=== PATIENT | female | born 1950 | race Caucasian/White ===

== ENCOUNTER → 2017-01-16 | Outpatient (CLI) | payer BC ==
[~2017-01-16] MED LIST: ALBU1AER9 INH; ATOR-26 PO; HYDR-389 PO; INSU100I17 SC; INSUINJ12 SC; LEVO100T PO; METF-382 PO
[2017-01-16 10:01] LABS: ESTIMATED AVERAGE GLUCOSE 177 mg/dl; HA1C FLAG Normal (Normal)
== END | disposition home or self-care (01) ==
LOC: C.LAB1850 08:16
PROVIDERS: ATTEND Nurse Practitioner Family
DX: E11.65 Type 2 diabetes mellitus with hyperglycemia (principal); E03.9 Hypothyroidism, unspecified

== ENCOUNTER → 2017-01-18 | Outpatient (CLI) | payer BC ==
[2017-01-18 13:09] LABS: BASO % 0.4 %; BASO ABS # 0.03 K/uL (0-0.2); COMPLETE YES; EOS % 1.7 %; HEMATOCRIT 44.2 % (37-47); IG% 0.3 %; LYMPH % 34.9 %; LYMPH ABS # 2.74 K/uL (1.2-3.4); MEAN CELL VOLUME 85.8 fL (80-100); MEAN CORPUSCULAR HEMOGLOBIN 28.5 pg (25-34); MEAN CORPUSCULAR HGB CONC 33.3 g/dl (32-36); MONO % 7.1 %; NEUT % 55.6 %; PLATELET COUNT 219 K/uL (130-400); RED BLOOD COUNT 5.15 M/uL (4.2-5.4); WHITE BLOOD COUNT 7.86 K/uL (4.8-10.8)
[2017-01-18 13:44] LABS: ALT/SGPT 25 U/L (12-78); BLOOD UREA NITROGEN 11 mg/dl (7-18); BUN/CREATININE RATIO 13.6 (10-20); C-REACTIVE PROTEIN < 0.29 mg/dl (0-0.29); CALCIUM 9.5 mg/dl (8.5-10.1); CARBON DIOXIDE 27 mmol/L (21-32); CHLORIDE 106 mmol/L (98-107); CREATININE 0.83 mg/dl (0.60-1.20); GLUCOSE 212 mg/dl (70-99); POTASSIUM 3.9 mmol/L (3.5-5.1); SODIUM 139 mmol/L (136-145)
[2017-01-18 13:47] LABS: ALB/GLOB RATIO 0.9 (0.9-2); ALKALINE PHOSPHATASE 121 U/L (45-117); AST/SGOT 12 U/L (15-37)
== END | disposition home or self-care (01) ==
LOC: C.LAB1850 12:16
PROVIDERS: ATTEND Orthopaedic Surgery
DX: M25.562 Pain in left knee (principal); Z96.652 Presence of left artificial knee joint; G89.29 Other chronic pain

== ENCOUNTER → 2017-07-05 | Outpatient (CLI) | payer BC ==
[~2017-07-05] MED LIST changes: +ASPI-320 PO; +CETI10TA84 PO; +DTRSR/2 PO; +ESCI1TAB10 PO; +ESCI1TAB9 PO; +FLUT0.15 NAE; +INSU100I2 SC; +INSU100I23 SC; +LATA0.5S OP; +MISC-573; +MISC-796; +MONT1TAB3 PO; +OXYC-57 PO; +OXYC-90 PO; +VNTHFA/IN INH; +[UNRECOGNIZED DRUG - CODE]
[2017-07-06 08:00] LABS: HEMOGLOBIN A1C 7.7 % (4.5-5.6)
== END | disposition home or self-care (01) ==
LOC: C.LABBC 11:01
PROVIDERS: ATTEND Nurse Practitioner Family
DX: E11.65 Type 2 diabetes mellitus with hyperglycemia (principal)

== ENCOUNTER → 2017-08-15 | Outpatient (CLI) | payer BC ==
[~2017-08-15] MED LIST changes: -ASPI-320 PO; -CETI10TA84 PO; -DTRSR/2 PO; -ESCI1TAB10 PO; -ESCI1TAB9 PO; -FLUT0.15 NAE; -INSU100I2 SC; -INSU100I23 SC; -LATA0.5S OP; -MISC-573; -MISC-796; -MONT1TAB3 PO; -OXYC-57 PO; -OXYC-90 PO; -VNTHFA/IN INH; -[UNRECOGNIZED DRUG - CODE]
--- NOTE | 2017-08-15 14:30 | MAMMOGRAPHY REPORT ---
BILATERAL DIGITAL SCREENING MAMMOGRAM TOMOSYNTHESIS WITH CAD: 08/15/2017 CLINICAL HISTORY: Routine screening. Patient has no complaints. TECHNIQUE: Breast tomosynthesis in addition to standard 2D mammography was performed. Current study was also evaluated with a Computer Aided Detection (CAD) system. COMPARISON: Comparison is made to exams dated: 02/11/2013 mammogram, 02/05/2013 mammogram, and 01/31/2012 mammogram - [facility]. BREAST COMPOSITION: The tissue of both breasts is almost entirely fatty. FINDINGS: No suspicious masses, calcifications, or areas of architectural distortion are noted in ei ther breast. There has been no significant interval change compared to prior exams. Scattered bilater al benign-appearing calcifications are again noted. IMPRESSION: ACR BI-RADS CATEGORY 2: BENIGN There is no mammographic evidence of malignancy. A 1 year screening mammogram is recommended. The pa tient will receive written notification of the results. Approximately 10% of breast cancers are not detected with mammography. A negative mammographic report should not delay biopsy if a clinically suggestive mass is present. Louisa Brennan M.D. ah/:08/15/2017 08:04:30 [employer] Submersible: Milagros VALENCIA(Darrian)(M), [facility] letter sent: Normal 1/2 BI-RADS Code: ACR BI-RADS Category 2: Benign
== END | disposition home or self-care (01) ==
LOC: C.MAMM 07:49
PROVIDERS: ATTEND Family Medicine
DX: Z12.31 Encounter for screening mammogram for malignant neoplasm of breast (principal)

== ENCOUNTER 2017-10-14 15:20 | Inpatient (IN) | payer OTHER, BC ==
[~2017-10-14] VITALS: Ht 165.1 cm; Wt 95.0 kg
[2017-10-14] MEDS ORDERED: MoRPHine SULFATE 4 MG/ML 1 ML CARP\\VIAL IV STA (15:31)
[2017-10-14] MEDS ORDERED: ONDANSETRON INJ 2 MG/ML 2 ML VIAL IV STA (15:31)
[2017-10-14 16:06] LABS: BASO % 0.2 %; BASO ABS # 0.02 K/uL (0-0.2); EOS % 1.8 %; EOS ABS # 0.19 K/uL (0-0.5); HEMATOCRIT 42.3 % (37-47); HEMOGLOBIN 14.7 g/dL (12.0-16.0); IG# 0.06 K/uL (0.00-0.02); LYMPH ABS # 3.25 K/uL (1.2-3.4); MEAN CELL VOLUME 84.6 fL (80-100); MEAN CORPUSCULAR HEMOGLOBIN 29.4 pg (25-34); MEAN CORPUSCULAR HGB CONC 34.8 g/dl (32-36); MEAN PLATELET VOLUME 11.6 fL (7.4-10.4); MONO % 7.2 %; MONO ABS # 0.76 K/uL (0.11-0.59); NEUT % 59.2 %; NEUT ABS # 6.22 K/uL (1.4-6.5); PLATELET COUNT 214 K/uL (130-400); RED CELL DISTRIBUTION WIDTH CV 13.8 % (11.5-14.5); RED CELL DISTRIBUTION WIDTH SD 42.6 fL (36.4-46.3)
--- NOTE | 2017-10-14 16:29 | DIAGNOSTIC IMAGING REPORT ---
L HIP UNILATERAL 2 VIEWS CLINICAL HISTORY: 66 years-old Female presenting with L hip pain s/p fall. TECHNIQUE: Frontal and frog-leg lateral views of the left hip were obtained. COMPARISON: None. FINDINGS: Impacted transcervical fracture of the left femoral neck suspected. No significant angulation. The left femoral head remains congruent in the acetabulum. Visualized portion of the bony pelvis intact. IMPRESSION: Findings highly suspicious for impacted transcervical left femoral neck fracture. The report will be called/faxed according to standard departmental protocol. Electronically signed by: Jose Guadalupe Watson M.D. 10/14/2017 4:28 PM Dictated Date/Time: 10/14/2017 4:26 PM
--- NOTE | 2017-10-14 16:31 | DIAGNOSTIC IMAGING REPORT ---
L KNEE 1 OR 2 VIEWS ROUTINE CLINICAL HISTORY: 66 years-old Female presenting with L knee injury from fall. TECHNIQUE: Frontal and lateral views of the left knee were obtained. COMPARISON: 08/18/2009. FINDINGS: Postsurgical changes of total left knee arthroplasty with patellar resurfacing. Knee joint effusion noted. Unchanged 3-4 mm of radiolucency at the distal aspect of the tibial stem component. No periprosthetic fracture. Prominent enthesophyte at the insertion of the quadriceps tendon. IMPRESSION: 1. Knee joint effusion. 2. Total left knee arthroplasty without evidence of hardware complication. 3. No acute osseous injury. Electronically signed by: Jose Guadalupe Watson M.D. 10/14/2017 4:30 PM Dictated Date/Time: 10/14/2017 4:28 PM
[2017-10-14 16:32] LABS: CALCIUM 9.2 mg/dl (8.5-10.1); CREATININE 0.92 mg/dl (0.60-1.20); POTASSIUM 3.9 mmol/L (3.5-5.1)
--- NOTE | 2017-10-14 16:50 | DIAGNOSTIC IMAGING REPORT ---
SINGLE VIEW CHEST CLINICAL HISTORY: Hip fracture. Preoperative examination. FINDINGS: An AP, portable, upright chest radiograph is compared to study dated 03/25/2013 and correlated with chest CT dated 07/06/2014. The examination is severely degraded by portable technique, apical lordotic positioning, and patient rotation. The heart is top normal for projection. The pulmonary vasculature is noncongested. Chronic interstitial thickening is similar to previous. No airspace consolidation, large pleural effusion, or pneumothorax is seen. The skeletal structures are osteopenic. The bony thorax is grossly intact. Arthritic change is seen in the shoulders. IMPRESSION: No acute cardiopulmonary abnormality. Electronically signed by: Francisco Schmid M.D. 10/14/2017 4:48 PM Dictated Date/Time: 10/14/2017 4:47 PM
[2017-10-14] MEDS ORDERED: ESCI1TAB10 PO (16:58)
[2017-10-14] MEDS ORDERED: INSU100I2 SC (16:58)
[2017-10-14] MEDS ORDERED: VNTHFA/IN INH (16:58)
[2017-10-14] MEDS ORDERED: INSU100I23 SC (16:58)
[2017-10-14] MEDS ORDERED: CETI10TA84 PO (16:58)
--- NOTE | 2017-10-14 17:15 | EMERGENCY ROOM VISIT NOTE ---
ED Visit Note First contact with patient: 15:26 The patient was seen and examined with Cam Tobias PA-C. I agree with the history, physical and findings. Please see the note for disposition and details.
[2017-10-14] MEDS ORDERED: SOD PHOSPHATE/SOD BIPHOSPHATE ENEMA 132 ML BTL PR PRN (18:45)
[2017-10-14] MEDS ORDERED: MAGNESIUM HYDROXIDE SUSP 30 ML UDC PO PRN (18:45)
[2017-10-14] MEDS ORDERED: MoRPHine SULFATE 4 MG/ML 1 ML CARP\\VIAL IV PRN (18:45)
[2017-10-14] MEDS ORDERED: GLUCOSE 10 TABS/TUBE PO PRN (18:45)
[2017-10-14] MEDS ORDERED: POLYETHYLENE (MIRALAX) 17 GM PACK PO PRN (18:45)
[2017-10-14] MEDS ORDERED: GLUCAGON FOR INJ 1 MG VIAL SQ PRN (18:45)
[2017-10-14] MEDS ORDERED: DEXTROSE 50% 50 ML SYR IV PRN (18:45)
[2017-10-14] MEDS ORDERED: GLUCOSE 40% GEL 15 GM TUBE PO PRN (18:45)
[2017-10-14] MEDS ORDERED: BISACODYL 10 MG SUPP PR PRN (18:45)
[2017-10-14] MEDS ORDERED: ONDANSETRON INJ 2 MG/ML 2 ML VIAL IV PRN (18:45)
[2017-10-14] MEDS ORDERED: NALOXONE HCL 0.4 MG/1 ML VIAL/CARP IV PRN (18:45)
[2017-10-14] MEDS ORDERED: LATA0.5S OP (18:54)
[2017-10-14] MEDS ORDERED: OXYC1TAB3 PO (18:54)
[2017-10-14] MEDS ORDERED: DTRSR/2 PO (18:54)
[2017-10-14] MEDS ORDERED: FLUT0.15 NAE (18:54)
[2017-10-14] MEDS ORDERED: MONT1TAB3 PO (18:54)
[2017-10-14] MEDS ORDERED: ESCI1TAB9 PO (18:54)
[2017-10-14 19:32] LABS: PTT PATIENT 24.5 SECONDS (21.0-31.0)
--- NOTE | 2017-10-14 20:02 | History and Physical ---
History & Physical Date & Time of Service: Oct 14, 2017 at 18:56 Chief Complaint: Fall, Leg Pain Primary Care Physician: Cody Lang M.D.(RAYSHAWN) History of Present Illness Source: patient, clinic records, hospital records Pt is 66 y/o F with PMH asthma, DM II, hypothyroidism, depression, tobacco use presented to ER with complaint of left knee and left hip pain after fall. Patient states was walking and she did not see stairs and tripped and fell. Denies hitting head or LOC. Complains of left knee pain and edema and ecchymosis and left hip pain with range of motion or attempted weightbearing. States some mild tingling sensation left leg. Denies any injury to upper extremities or right lower extremity. Patient reports unable to bear weight on left leg secondary to pain. Patient reports history of left knee scope on . History of asthma uses albuterol inhaler 2-3 times a week. Reports chronic postnasal drip, uses Flonase. Denies history CAD AL in the past. History echo 2016: EF: 60-64%. Patient reports history stress test in 2010 which she reports is normal. Denies history hip injury or surgery in the past. History of bilateral knee replacement past. Denies fever/chills, diaphoresis, N/V/D/C, DIAZ, dizziness, syncope, vision changes, neck pain, back pain, CP, SOB, orthopnea , palpitations, cough, sore throat, choking, otalgia, abdominal pain, rashes, urinary symptoms. Past Medical/Surgical History Medical Problems: (1) Asthma Status: Chronic (2) Depression Status: Chronic (3) DM type 2 (diabetes mellitus, type 2) Status: Chronic (4) Dyslipidemia Status: Chronic (5) Hypothyroidism Status: Chronic (6) Tobacco abuse Status: Chronic Surgical Problems: (1) History of bilateral knee replacement Status: Resolved (2) Hx of arthroscopy of left knee Permanent Comment: 09/26/2017 - diagnostic arthroscopy - Dr Packer Status: Resolved (3) Hx of hysterectomy Status: Resolved Family History Diabetes mellitus Hypertension Social History Smoking Status: Current Every Day Smoker (1ppd x 45 years) Smokeless Tobacco Use: No Alcohol Use: none Drug Use: none Marital Status: single Housing status: lives with significant other Immunizations History of Influenza Vaccine: No Influenza Vaccine Date: Apr 25, 2005 History of Tetanus Vaccine?: Yes History of Pneumococcal: No History of Hepatitis B Vaccine: No Allergies Coded Allergies: Iodinated Diagnostic Agents (Verified Allergy, Unknown, ., 10/14/17) Moxifloxacin (Unverified Allergy, Unknown, ., 09/07/14) Oxycodone (Verified Adverse Reaction, Intermediate, n/v, 09/07/14) Codeine (Verified Adverse Reaction, Mild, 09/07/14) Propoxyphene (Verified Adverse Reaction, Unknown, 08/24/14) Home Medications Scheduled Atorvastatin (Lipitor), 80 MG PO QAM Cetirizine (Zyrtec), 10 MG PO DAILY Escitalopram Oxalate (Lexapro), 1 TAB PO DAILY Fluticasone Propionate (Nasal) (Flonase Allergy Relief), 2 SPRAYS DAVID DAILY Insulin Glargine (Basaglar Kwikpen), 31 UNITS SC HS Insulin Lispro (Human) (Humalog Kwikpen), 1 DOSE SC DIRECTED Latanoprost (Xalatan 0.005% Oph Melinda), 1 DROPS OP HS Levothyroxine Sodium (Synthroid), 100 MCG PO DAILY Metformin Ext Rel (Glucophage Ext Rel), 1,000 MG PO BID Tolterodine Tartrate (Detrol LA), 1 CAP PO BID Scheduled PRN Albuterol Hfa (Ventolin Hfa), 2 PUFFS INH Q4H PRN for Shortness of Breath Oxycodone Ir (Roxicodone Ir), 1-2 TAB PO Q6 PRN for Pain Miscellaneous Medications Montelukast Sodium (Singulair), 10 MG PO Review of Systems See HPI for pertinent positives & negatives. All other systems reviewed and were otherwise negative Physical Exam Vital Signs Date Time Temp Pulse Resp B/P (MAP) Pulse Ox O2 Delivery O2 Flow Rate FiO2 10/14/17 18:01 83 16 130/64 92 Room Air 10/14/17 16:43 84 16 152/77 94 Room Air 10/14/17 15:29 36.6 90 20 157/87 98 Room Air General Appearance: no apparent distress, + obese Head: normocephalic, atraumatic Eyes: normal inspection, sclerae normal ENT: hearing grossly normal, pharynx normal, + pertinent finding (membranes moist) Neck: supple, no JVD, trachea midline Respiratory/Chest: no respiratory distress, no accessory muscle use, + wheezing (Mild scattered expiratory wheezing) Cardiovascular: regular rate, rhythm, no murmur Abdomen/GI: normal bowel sounds, non tender, soft Extremities/Musculoskelatal: + pertinent finding (Left knee: + edema ecchymosis , mild tenderness to palpation, limited range of motion secondary to tenderness. Left hip no tenderness to palpation, positive tenderness with any active internal or external rotation or flexion. Distal pulses bilaterally intact, sensation to light touch intact bilaterally, brisk cap refill bilaterally) Neurologic/Psych: alert, normal mood/affect, oriented x 3 Skin: normal color, warm/dry Diagnostics Laboratory Results Results Past 24 Hours Test 10/14/17 15:48 10/14/17 17:03 10/14/17 18:44 Range/Units White Blood Count 10.50 4.8-10.8 K/uL Red Blood Count 5.00 4.2-5.4 M/uL Hemoglobin 14.7 12.0-16.0 g/dL Hematocrit 42.3 37-47 % Mean Corpuscular Volume 84.6 80-100 fL Mean Corpuscular Hemoglobin 29.4 25-34 pg Mean Corpuscular Hemoglobin Concent 34.8 32-36 g/dl Platelet Count 214 130-400 K/uL Mean Platelet Volume 11.6 7.4-10.4 fL Neutrophils (%) (Auto) 59.2 % Lymphocytes (%) (Auto) 31.0 % Monocytes (%) (Auto) 7.2 % Eosinophils (%) (Auto) 1.8 % Basophils (%) (Auto) 0.2 % Neutrophils # (Auto) 6.22 1.4-6.5 K/uL Lymphocytes # (Auto) 3.25 1.2-3.4 K/uL Monocytes # (Auto) 0.76 0.11-0.59 K/uL Eosinophils # (Auto) 0.19 0-0.5 K/uL Basophils # (Auto) 0.02 0-0.2 K/uL RDW Standard Deviation 42.6 36.4-46.3 fL RDW Coefficient of Variation 13.8 11.5-14.5 % Immature Granulocyte % (Auto) 0.6 % Immature Granulocyte # (Auto) 0.06 0.00-0.02 K/uL Sodium Level 139 136-145 mmol/L Potassium Level 3.9 3.5-5.1 mmol/L Chloride Level 106 98-107 mmol/L Carbon Dioxide Level 26 21-32 mmol/L Anion Gap 7.0 3-11 mmol/L Blood Urea Nitrogen 13 7-18 mg/dl Creatinine 0.92 0.60-1.20 mg/dl Est Creatinine Clear Calc Drug Dose 69.4 ml/min Estimated GFR () 74.7 Estimated GFR (Non- 64.4 BUN/Creatinine Ratio 14.3 10-20 Random Glucose 89 70-99 mg/dl Calcium Level 9.2 8.5-10.1 mg/dl Diagnostic Radiology CXR: IMPRESSION: No acute cardiopulmonary abnormality. LEFT HIP X-RAY: IMPRESSION: Findings highly suspicious for impacted transcervical left femoral neck fracture. LEFT KNEE X-RAY: IMPRESSION: 1. Knee joint effusion. 2. Total left knee arthroplasty without evidence of hardware complication. 3. No acute osseous injury. EKG EKG: NSR, rate 82, no ST elevations noted. Impression Assessment and Plan PROBABLE LEFT FEMUR FRACTURE Patient tripped and fell today, complaining of left hip and left knee pain. Left hip x-ray: Findings highly suspicious for impacted transcervical left femoral neck fracture. Left knee x-ray: No acute fracture. In ER given Zofran and morphine with moderate pain. EKG without acute changes noted. in ER reported consult. Patient moderate surgical risk secondary to age, smoking, DM -Admit MedSurg -Hip fracture order set -N.p.o. after midnight -Orthopedic consult -Patient may need additional imaging study to hip, will await ortho recommendations -Morphine as needed pain -Will reassess patient in a.m., if wheezing subsided and O2 sats stable then no contraindication for surgery ASTHMA Patient with some mild expiratory wheezing noted on exam. 94-98% on room air. Respirations 16 and nonlabored. Patient afebrile. no leukocytosis -Xopenex/Atrovent nebs -Continue Singulair -Will reassess patient in a.m., if wheezing subsided and O2 sats stable then no contraindication for surgery DM II -H A1c in a.m. glucose 89 in ER today -Hold metformin -Hold Lantus tonight with patient being n.p.o. with plans to resume when patient starts eating -NovoLog sliding scale per protocol HYPOTHYROIDISM TSH added -Continue levothyroxine DEPRESSION -Continue Lexapro DYSLIPIDEMIA -Continue statin TOBACCO USE -Smoking cessation discussed DVT Prophylaxis -SCDs Disposition admit med surg Full code Follows with Dr Lang for routine care Pt was seen with Dr Tavarez. See addendum ATTENDING ADDENDUM care coordinated with WHIT Harrison please refer to her notes for full details, I agree with her notes patient seen and examined, records reviewed by myself as well on exam, patient seen resting in bed has severe left hip pain with minimal movement no shortness of breath, cough no other symptoms VS noted and reviewed oriented x3, not in distress, speaks in sentences with no effort nor accessory muscle use normal rate, regular rhythm, no murmurs (+) mild scattered wheezes non distended, soft, nontender no bipedal edema, erythema, warmth no neuro deficits Hg 14 Crea 0.92 ASSESSMENT/PLAN> IMPACTED TRANSCERVICAL FEMORAL NECK FRACTURE may need Surgical Intervention patient low-moderate risk for cardiopulmonary complications for Orthopedis surgery given age, comorbidities management of asthma noted below ASTHMA CHRONIC SMOKER (+) faint wheezes on exam patient reports she has chronic wheezing and uses Albuterol Inhaler PRN will start Xopenex nebs q6h to optimize respiratory status will re-evaluate in AM prior to surgery other diagnoses and plan of care as per WHIT Tavarez MD Resuscitation Status Full Code VTE Prophylaxis Will order VTE Prophylaxis: Yes Additional Copies To Amol Tavarez MD
[2017-10-14 20:03] VITALS: BP 145/79; PULSE 90; TEMP 36.8; O2SAT 90; BMI 34.9
--- NOTE | 2017-10-14 20:39 | EMERGENCY ROOM VISIT NOTE ---
History First contact with patient: 15:26 Chief Complaint: HIP PAIN Stated Complaint: FRACTURE OF FEMORAL NEXK, LEFT, CLOSED History of Present Illness The patient is a 66 year old female who presents to the Emergency Room with complaints of left hip and knee pain. The patient reports that she was on a bus tour, and when she got out of the bus, was walking down the sidewalk. She did not know that the sidewalk had a step in it, and the patient missed the step. She stumbled and landed on her left knee. She denies any significant knee pain, but does report left hip pain. Weightbearing significantly worsens her pain to a 9 out of 10. The patient denies any head injury, neck pain or back pain. She denies any other orthopedic injuries from her fall. The patient denies any blood thinner use. She has had bilateral knee replacements by Dr. Leiva at [facility]. Review of Systems HEENT: Denies dizziness, visual problems, hearing loss, tinnitus. Denies difficulty swallowing or oral lesions. PULMONARY: Denies cough, shortness of breath, sputum production or hemoptysis. CARDIOVASCULAR: Denies chest pain, palpitations, dyspnea on exertion, orthopnea or peripheral edema. GASTROINTESTINAL: Denies diarrhea, constipation, nausea, vomiting, or abdominal pain. GENITOURINARY: Denies dysuria, frequency, urgency or nocturia. NEUROLOGIC: Denies history of epilepsy, CVA, TIA or chronic headaches. MUSCULOSKELETAL: Denies history of joint tenderness/swelling. Otherwise see HPI. SKIN: Denies rashes or lesions. PSYCHIATRIC: History of depression. ENDOCRINE: History of diabetes. Denies thyroid disorders. Past Medical/Surgical History Medical Problems: (1) Asthma (2) Depression (3) DM type 2 (diabetes mellitus, type 2) (4) Dyslipidemia (5) Fracture of femoral neck, left, closed (6) Hypothyroidism (7) Tobacco abuse Surgical Problems: (1) History of bilateral knee replacement (2) Hx of arthroscopy of left knee (3) Hx of hysterectomy Family History Diabetes mellitus Hypertension Social History Smoking Status: Current Every Day Smoker Smokeless Tobacco Use: No Drug Use: none Marital Status: single Housing Status: lives with significant other Occupation Status: employed Current/Historical Medications Scheduled Atorvastatin (Lipitor), 80 MG PO QAM Cetirizine (Zyrtec), 10 MG PO DAILY Escitalopram Oxalate (Lexapro), 1 TAB PO DAILY Fluticasone Propionate (Nasal) (Flonase Allergy Relief), 2 SPRAYS DAVID DAILY Insulin Glargine (Basaglar Kwikpen), 31 UNITS SC HS Insulin Lispro (Human) (Humalog Kwikpen), 1 DOSE SC DIRECTED Latanoprost (Xalatan 0.005% Oph Melinda), 1 DROPS OP HS Levothyroxine Sodium (Synthroid), 100 MCG PO DAILY Metformin Ext Rel (Glucophage Ext Rel), 1,000 MG PO BID Tolterodine Tartrate (Detrol LA), 1 CAP PO BID Scheduled PRN Albuterol Hfa (Ventolin Hfa), 2 PUFFS INH Q4H PRN for Shortness of Breath Oxycodone Ir (Roxicodone Ir), 1-2 TAB PO Q6 PRN for Pain Miscellaneous Medications Montelukast Sodium (Singulair), 10 MG PO Physical Exam Vital Signs Date Time Temp Pulse Resp B/P (MAP) Pulse Ox O2 Delivery O2 Flow Rate FiO2 10/14/17 18:01 83 16 130/64 92 Room Air 10/14/17 16:43 84 16 152/77 94 Room Air 10/14/17 15:29 36.6 90 20 157/87 98 Room Air Physical Exam CONSTITUTIONAL: Obese female, alert and oriented X 3 with positive affect. The patient is partially laying on her right side, and appears in moderate discomfort from pain. HEENT: Normocephalic, atraumatic. Pupils equal, round and reactive. No subconjunctival hemorrhage, epistaxis, raccoon's eyes or padilla sign. NECK: Full active range of motion without discomfort. RESPIRATORY: Clear to auscultation bilaterally with no wheezing, crackles, rhonchi or stridor. CARDIOVASCULAR: Regular rate and rhythm with no murmurs, rubs or gallops. GASTROINTESTINAL: Bowel sounds present in all quadrants. Soft and nontender to palpation. MUSCULOSKELETAL: Examination does not show any obvious ecchymosis or open wounds on the knee. The patient has generalized tenderness to palpation about the entire left hip. Patient has no tenderness to palpation through the central lumbar spine. Distal pulses are intact. INTEGUMENTARY: No rash or other significant dermatologic conditions noted. NEUROLOGIC: Left lower extremity is sensory intact. Medical Decision & Procedures ER Provider Diagnostic Interpretation: My interpretation of left hip x-ray shows a femoral neck fracture without dislocation. Radiologist report is as follows: L HIP UNILATERAL 2 VIEWS CLINICAL HISTORY: 66 years-old Female presenting with L hip pain s/p fall. TECHNIQUE: Frontal and frog-leg lateral views of the left hip were obtained. COMPARISON: None. FINDINGS: Impacted transcervical fracture of the left femoral neck suspected. No significant angulation. The left femoral head remains congruent in the acetabulum. Visualized portion of the bony pelvis intact. IMPRESSION: Findings highly suspicious for impacted transcervical left femoral neck fracture. My interpretation of left knee x-rays does not show any periprosthetic fractures. Joint effusion is noted. Radiologist report is as follows: L KNEE 1 OR 2 VIEWS ROUTINE CLINICAL HISTORY: 66 years-old Female presenting with L knee injury from fall. TECHNIQUE: Frontal and lateral views of the left knee were obtained. COMPARISON: 08/18/2009. FINDINGS: Postsurgical changes of total left knee arthroplasty with patellar resurfacing. Knee joint effusion noted. Unchanged 3-4 mm of radiolucency at the distal aspect of the tibial stem component. No periprosthetic fracture. Prominent enthesophyte at the insertion of the quadriceps tendon. IMPRESSION: 1. Knee joint effusion. 2. Total left knee arthroplasty without evidence of hardware complication. 3. No acute osseous injury. My interpretation of an ECG shows a normal sinus rhythm of [address] elevation or other abnormalities. My interpretation of a portable chest x-ray does not show any consolidations, pneumothorax or cardiac prominence. Radiologist reports are as follows: SINGLE VIEW CHEST CLINICAL HISTORY: Hip fracture. Preoperative examination. FINDINGS: An AP, portable, upright chest radiograph is compared to study dated 03/25/2013 and correlated with chest CT dated 07/06/2014. The examination is severely degraded by portable technique, apical lordotic positioning, and patient rotation. The heart is top normal for projection. The pulmonary vasculature is noncongested. Chronic interstitial thickening is similar to previous. No airspace consolidation, large pleural effusion, or pneumothorax is seen. The skeletal structures are osteopenic. The bony thorax is grossly intact. Arthritic change is seen in the shoulders. IMPRESSION: No acute cardiopulmonary abnormality. Laboratory Results 10/14/17 15:48 Red Blood Count 5.00, Mean Corpuscular Volume 84.6, Mean Corpuscular Hemoglobin 29.4, Mean Corpuscular Hemoglobin Concent 34.8, Mean Platelet Volume 11.6, Neutrophils (%) (Auto) 59.2, Lymphocytes (%) (Auto) 31.0, Monocytes (%) (Auto) 7.2, Eosinophils (%) (Auto) 1.8, Basophils (%) (Auto) 0.2, Neutrophils # (Auto) 6.22, Lymphocytes # (Auto) 3.25, Monocytes # (Auto) 0.76, Eosinophils # (Auto) 0.19, Basophils # (Auto) 0.02 10/14/17 15:48 Test 10/14/17 15:48 10/14/17 16:48 White Blood Count 10.50 K/uL (4.8-10.8) Red Blood Count 5.00 M/uL (4.2-5.4) Hemoglobin 14.7 g/dL (12.0-16.0) Hematocrit 42.3 % (37-47) Mean Corpuscular Volume 84.6 fL (80-100) Mean Corpuscular Hemoglobin 29.4 pg (25-34) Mean Corpuscular Hemoglobin Concent 34.8 g/dl (32-36) Platelet Count 214 K/uL (130-400) Mean Platelet Volume 11.6 fL (7.4-10.4) Neutrophils (%) (Auto) 59.2 % Lymphocytes (%) (Auto) 31.0 % Monocytes (%) (Auto) 7.2 % Eosinophils (%) (Auto) 1.8 % Basophils (%) (Auto) 0.2 % Neutrophils # (Auto) 6.22 K/uL (1.4-6.5) Lymphocytes # (Auto) 3.25 K/uL (1.2-3.4) Monocytes # (Auto) 0.76 K/uL (0.11-0.59) Eosinophils # (Auto) 0.19 K/uL (0-0.5) Basophils # (Auto) 0.02 K/uL (0-0.2) RDW Standard Deviation 42.6 fL (36.4-46.3) RDW Coefficient of Variation 13.8 % (11.5-14.5) Immature Granulocyte % (Auto) 0.6 % Immature Granulocyte # (Auto) 0.06 K/uL (0.00-0.02) Anion Gap 7.0 mmol/L (3-11) Est Creatinine Clear Calc Drug Dose 69.4 ml/min Estimated GFR () 74.7 Estimated GFR (Non- 64.4 BUN/Creatinine Ratio 14.3 (10-20) Calcium Level 9.2 mg/dl (8.5-10.1) Prothrombin Time 10.0 SECONDS (9.0-12.0) Prothromb Time International Ratio 1.0 (0.9-1.1) Activated Partial Thromboplast Time 24.5 SECONDS (21.0-31.0) Partial Thromboplastin Ratio 0.9 The above labs were reviewed. Medications Administered Medications (Trade) Dose Ordered Sig/Parminder Route Start Time Stop Time Status Last Admin Dose Admin Morphine Sulfate (MoRPHine SULFATE INJ) 4 mg NOW STAT IV 10/14/17 15:31 10/14/17 15:34 DC 10/14/17 15:51 4 MG Ondansetron HCl (Zofran Inj) 4 mg NOW STAT IV 10/14/17 15:31 10/14/17 15:34 DC 10/14/17 15:51 4 MG ED Course Patient history and physical exam were performed. Nurse's notes were reviewed. Vital signs were reviewed, showing an elevated blood pressure 157/87, likely secondary to pain. According to the EMS report, the patient received fentanyl 50 mcg nasal spray for pain. IV access was also established en route. Upon presentation, the patient was still complaining of discomfort, and requested additional pain medicine. She was administered IV morphine and Zofran. Labs were drawn, reviewed and were grossly normal. Initial x-rays of the left knee were normal. X-rays of the left hip shows a femoral neck fracture. At this point, additional ECG and portable chest x-ray studies were performed and were normal. Upon reevaluation, the patient still reported adequate pain relief. The case was further discussed with Dr. Loyd, ED attending physician, who suggested orthopedic and hospitalist consultation. Dr. Loyd also performed an independent evaluation and agrees with workup and plan of care. The case was also discussed with Dr. Schultz, [facility] surgeon primary health organisation manager who suggested hospitalist admission and preoperative clearance. The case was then discussed with the [facility] hospitalist group. Please see other dictations for further treatment and final disposition. Medical Decision Blood Pressure Screening Patient's blood pressure: Elevated blood pressure Blood pressure disposition: Elevated BP felt to be situational Impression Primary Impression: Fracture of femoral neck, left, closed Additional Impressions: Contusion of left knee Fall from slip, trip, or stumble Departure Information Dispostion Admitted as an inpatient Condition FAIR Referrals Cody Lang M.D.([facility]SHAWN) (PCP) Forms WORK / SCHOOL INSTRUCTIONS, HOME CARE DOCUMENTATION FORM, IMPORTANT VISIT INFORMATION Patient Instructions [facility] Problem Qualifiers Primary Impression: Fracture of femoral neck, left, closed Encounter type: initial encounter Qualified Codes: S72.002A - Fracture of unspecified part of neck of left femur, initial encounter for closed fracture Additional Impressions: Contusion of left knee Encounter type: initial encounter Qualified Codes: S80.02XA - Contusion of left knee, initial encounter Fall from slip, trip, or stumble Encounter type: initial encounter Qualified Codes: W01.0XXA - Fall on same level from slipping, tripping and stumbling without subsequent striking against object, initial encounter
[2017-10-14] MEDS: DOCUSATE SODIUM/SENNA 50/8.6MG TAB PO SCH (21:00)
[2017-10-14] MEDS: LEVALBUTEROL 1.25MG/0.5ML NEB INH SCH (21:00)
[2017-10-14] MEDS: IPRATROPIUM BROMIDE NEB SOLN 0.02% 2.5 ML VIAL INH SCH (21:00)
[2017-10-14] MEDS ORDERED: LEVALBUTEROL/IPRATROPIUM NEB INH SCH (21:00)
[2017-10-14] MEDS ORDERED: INSULIN ASPART 100 UNITS/ML 3 ML PEN SC SCH (21:00)
[2017-10-14] MEDS: LATANOPROST 0.005% OP SOLN 2.5 ML BTL OP SCH (21:10)
[2017-10-14 22:55] VITALS: BP 152/78; PULSE 86; TEMP 37.3; O2SAT 93
[2017-10-15] VITALS (10 sets, daily range): BP systolic 132–155; BP diastolic 67–86; PULSE 78–98; TEMP 36.6–37.4; O2SAT 86–96; Ht 165.1 cm; Wt 95.0 kg
[2017-10-15] MEDS ORDERED: NURSING VERBAL MED ORDER ONE (01:30)
[2017-10-15] MEDS: LEVALBUTEROL 1.25MG/0.5ML NEB INH SCH ×2 (01:49→07:02)
[2017-10-15] MEDS: IPRATROPIUM BROMIDE NEB SOLN 0.02% 2.5 ML VIAL INH SCH ×2 (01:49→07:02)
[2017-10-15] MEDS ORDERED: CEFAZOLIN 2000MG IV PUSH 15 ML IV SCH (06:00)
[2017-10-15] MEDS: INSULIN ASPART 100 UNITS/ML 3 ML PEN SC SCH ×4 (06:19→21:00)
[2017-10-15] MEDS: LEVOTHYROXINE 100 MCG TAB PO SCH (06:19)
[2017-10-15 07:12] LABS: HEMATOCRIT 41.7 % (37-47); HEMOGLOBIN 14.1 g/dL (12.0-16.0); MEAN CELL VOLUME 84.6 fL (80-100); MEAN CORPUSCULAR HEMOGLOBIN 28.6 pg (25-34); MEAN CORPUSCULAR HGB CONC 33.8 g/dl (32-36); MEAN PLATELET VOLUME 12.2 fL (7.4-10.4); PLATELET COUNT 210 K/uL (130-400); RED CELL DISTRIBUTION WIDTH CV 13.7 % (11.5-14.5); WHITE BLOOD COUNT 12.47 K/uL (4.8-10.8)
[2017-10-15 07:42] LABS: CALCIUM 8.6 mg/dl (8.5-10.1); CREATININE 0.83 mg/dl (0.60-1.20); POTASSIUM 3.7 mmol/L (3.5-5.1)
--- NOTE | 2017-10-15 08:11 | Orthopedic Consultation ---
Orthopedic Consultation Date of Consultation: Oct 15, 2017. Attending Physician: Amol Tavarez MD Reason for Consultation: Left hip fracture History of Present Illness Patient is a 66-year-old white female who states that she had been on a field trip with school students that was returning from [place]. They had returned home, and were exiting the bus. As she was walking down the sidewalk, she stumbled and lost her balance and fell to the ground. She had immediate pain in the left hip and also in the left knee. She was unable to ambulate. She did not lose consciousness and she states that she did not have any dizziness or lightheadedness or chest pain prior to the fall or after. She was brought to [facility] ED where she was found to have a left hip fracture. She was admitted for further care and we have been asked to see her for her left hip fracture. Of note, she states that she just had a recent arthroscopy of the left knee with Dr. Packer in [place]. She states that he found lots of scar tissue in the knee but no other overt problems. Past Medical/Surgical History Medical Problems: (1) Contusion of left knee Status: Acute (2) Fall from slip, trip, or stumble Status: Acute Past surgical history: Bilateral total knee arthroplasties, left knee arthroscopy on 09/27/2017, hysterectomy, rotator cuff repair, bilateral carpal tunnel release, D&C Family History Diabetes mellitus Hypertension Social History Smoking Status: Current Every Day Smoker Smokeless Tobacco Use: No Alcohol Use: none Drug Use: none Marital Status: single Housing Status: lives with significant other Occupation Status: employed Allergies Coded Allergies: Iodinated Diagnostic Agents (Verified Allergy, Unknown, ., 10/14/17) Moxifloxacin (Unverified Allergy, Unknown, ., 09/07/14) Oxycodone (Verified Adverse Reaction, Intermediate, n/v, 09/07/14) Codeine (Verified Adverse Reaction, Mild, 09/07/14) Propoxyphene (Verified Adverse Reaction, Unknown, 08/24/14) Home Medications Scheduled Atorvastatin (Lipitor), 80 MG PO QAM Cetirizine (Zyrtec), 10 MG PO DAILY Escitalopram Oxalate (Lexapro), 1 TAB PO DAILY Fluticasone Propionate (Nasal) (Flonase Allergy Relief), 2 SPRAYS DAVID DAILY Insulin Glargine (Basaglar Kwikpen), 31 UNITS SC HS Insulin Lispro (Human) (Humalog Kwikpen), 1 DOSE SC DIRECTED Latanoprost (Xalatan 0.005% Oph Melinda), 1 DROPS OP HS Levothyroxine Sodium (Synthroid), 100 MCG PO DAILY Metformin Ext Rel (Glucophage Ext Rel), 1,000 MG PO BID Tolterodine Tartrate (Detrol LA), 1 CAP PO BID Scheduled PRN Albuterol Hfa (Ventolin Hfa), 2 PUFFS INH Q4H PRN for Shortness of Breath Oxycodone Ir (Roxicodone Ir), 1-2 TAB PO Q6 PRN for Pain Miscellaneous Medications Montelukast Sodium (Singulair), 10 MG PO Current Inpatient Medications Current Inpatient Medications Medications (Trade) Dose Ordered Sig/Parminder Route Start Time Stop Time Status Last Admin Dose Admin Cefazolin Sodium 15 ml @ 3.75 mls/ min PREOP IV 10/15/17 06:00 10/15/17 18:00 Naloxone HCl (Narcan Inj) 0.1 mg PRN PRN IV 10/14/17 18:45 11/13/17 18:44 Senna/Docusate Sodium (Senokot S Tab) 2 tab HS PO 10/14/17 21:00 11/13/17 20:59 Polyethylene (Miralax Powder Packet) 17 gm DAILY PRN PO 10/14/17 18:45 11/13/17 18:44 Magnesium Hydroxide (Milk Of Magnesia Susp) 30 ml DAILY PRN PO 10/14/17 18:45 11/13/17 18:44 Bisacodyl (Dulcolax Supp) 10 mg DAILY PRN NE 10/14/17 18:45 11/13/17 18:44 Sodium Biphosphate/ Sodium Phosphate (Fleet Enema) 132 ml PRN PRN NE 10/14/17 18:45 Acetaminophen (Tylenol Tab) 650 mg Q4H PRN PO 10/14/17 18:45 11/13/17 18:44 Ondansetron HCl (Zofran Inj) 4 mg Q6H PRN IV 10/14/17 18:45 11/13/17 18:44 Morphine Sulfate (MoRPHine SULFATE INJ) 4 mg Q4 PRN IV 10/14/17 18:45 10/28/17 18:44 Glucose (Glucose 40% Gel) 15-30 GRAMS 15 GRAMS... UD PRN PO 10/14/17 18:45 11/13/17 18:44 Glucose (Glucose Chew Tab) 4-8 Tablets 4 Tabl... UD PRN PO 10/14/17 18:45 11/13/17 18:44 Dextrose (Dextrose 50% 50ML Syringe) 25-50ML OF 50% DW IV FOR... UD PRN IV 10/14/17 18:45 11/13/17 18:44 Glucagon (Glucagon Inj) 1 mg UD PRN SQ 10/14/17 18:45 11/13/17 18:44 Atorvastatin Calcium (Lipitor Tab) 80 mg QAM PO 10/15/17 09:00 11/14/17 08:59 Escitalopram Oxalate (Lexapro Tab) 10 mg DAILY PO 10/15/17 09:00 11/14/17 08:59 Fluticasone Propionate (Flonase Nasal [place]) 2 sprays DAILY DAVID 10/15/17 09:00 11/14/17 08:59 Latanoprost (Xalatan Oph Soln) 1 drops HS OP 10/14/17 21:00 11/13/17 20:59 10/14/17 21:10 1 DROPS Levothyroxine Sodium (Synthroid Tab) 100 mcg DAILYBB PO 10/15/17 06:00 11/14/17 05:59 10/15/17 06:19 100 MCG Montelukast Sodium (Singulair Tab) 10 mg DAILY PO 10/15/17 09:00 11/14/17 08:59 Ipratropium [place] (Atrovent 0.02% 0.5MG/2.5ML Neb) 0.5 mg Q6R INH 10/14/17 21:00 11/13/17 20:59 10/15/17 07:02 0.5 MG Levalbuterol (Xopenex 1.25MG/ 0.5ML Neb) 1.25 mg Q6R INH 10/14/17 21:00 11/13/17 20:59 10/15/17 07:02 1.25 MG Insulin Aspart (novoLOG ASPART) SLIDING SCALE If C... Q6 SC 10/15/17 06:00 11/14/17 05:59 10/15/17 06:19 2 UNITS Lorazepam 0.5 mg/ Syringe 1 ml @ 0.5 mls/min Q8H PRN IV 10/15/17 07:45 11/14/17 07:44 Review of Systems As per admitting history and physical Physical Exam Date Time Temp Pulse Resp B/P (MAP) Pulse Ox O2 Delivery O2 Flow Rate FiO2 10/15/17 07:18 37.1 83 20 155/86 (109) 93 Room Air 10/15/17 07:02 83 16 93 Room Air 10/15/17 01:50 86 16 96 Room Air 10/14/17 23:33 Room Air 10/14/17 22:55 37.3 86 16 152/78 (102) 93 Room Air 10/14/17 20:03 36.8 90 16 145/79 90 Room Air 10/14/17 19:11 85 176/91 96 10/14/17 18:01 83 16 130/64 92 Room Air 10/14/17 16:43 84 16 152/77 94 Room Air 10/14/17 15:29 36.6 90 20 157/87 98 Room Air On exam, the patient is lying in bed with the back of the bed up approximately 45. She is in no acute distress, pleasant and cooperative, alert and oriented 3. Focusing on the left lower extremity, she has a pillow placed under the left knee keeping the left knee flexed to approximately 70 and the left hip is flexed to approximately 80 which she states is the most comfortable for her at this time. Her left knee has moderate effusion and is mildly tender on palpation. She has mild tenderness over the left lateral portion of her hip and thigh. No attempts to move the left hip were done at this time due to fracture. Patient states that moving the left lower extremity with the use of the knee as well causes extreme pain. She states the pain is in the lateral hip and also radiates into the groin. Left calf is soft and nontender. Left ankle and foot is nontender on palpation and has good range of motion and sensation is intact. Right lower extremity is essentially benign at this time and she has range of motion within normal limits of the hip knee and ankle. Bilateral upper extremities are unaffected and range of motion of is within normal limits. Distal pulses are equal bilaterally of the upper and lower extremities. There is no gross motor or sensory deficits seen at this time other than due to fracture. Laboratory Results Last 24 Hours Test 10/14/17 15:48 10/14/17 16:48 10/14/17 20:25 10/15/17 06:00 White Blood Count 10.50 K/uL Red Blood Count 5.00 M/uL Hemoglobin 14.7 g/dL Hematocrit 42.3 % Mean Corpuscular Volume 84.6 fL Mean Corpuscular Hemoglobin 29.4 pg Mean Corpuscular Hemoglobin Concent 34.8 g/dl Platelet Count 214 K/uL Mean Platelet Volume 11.6 fL Neutrophils (%) (Auto) 59.2 % Lymphocytes (%) (Auto) 31.0 % Monocytes (%) (Auto) 7.2 % Eosinophils (%) (Auto) 1.8 % Basophils (%) (Auto) 0.2 % Neutrophils # (Auto) 6.22 K/uL Lymphocytes # (Auto) 3.25 K/uL Monocytes # (Auto) 0.76 K/uL Eosinophils # (Auto) 0.19 K/uL Basophils # (Auto) 0.02 K/uL RDW Standard Deviation 42.6 fL RDW Coefficient of Variation 13.8 % Immature Granulocyte % (Auto) 0.6 % Immature Granulocyte # (Auto) 0.06 K/uL Sodium Level 139 mmol/L Potassium Level 3.9 mmol/L Chloride Level 106 mmol/L Carbon Dioxide Level 26 mmol/L Anion Gap 7.0 mmol/L Blood Urea Nitrogen 13 mg/dl Creatinine 0.92 mg/dl Est Creatinine Clear Calc Drug Dose 69.4 ml/min Estimated GFR () 74.7 Estimated GFR (Non- 64.4 BUN/Creatinine Ratio 14.3 Random Glucose 89 mg/dl Calcium Level 9.2 mg/dl Prothrombin Time 10.0 SECONDS Prothromb Time International Ratio 1.0 Activated Partial Thromboplast Time 24.5 SECONDS Partial Thromboplastin Ratio 0.9 Thyroid Stimulating Hormone (TSH) 1.540 uIu/ml Bedside Glucose 255 mg/dl 209 mg/dl Test 10/15/17 06:35 White Blood Count 12.47 K/uL Red Blood Count 4.93 M/uL Hemoglobin 14.1 g/dL Hematocrit 41.7 % Mean Corpuscular Volume 84.6 fL Mean Corpuscular Hemoglobin 28.6 pg Mean Corpuscular Hemoglobin Concent 33.8 g/dl RDW Standard Deviation 42.0 fL RDW Coefficient of Variation 13.7 % Platelet Count 210 K/uL Mean Platelet Volume 12.2 fL Sodium Level 137 mmol/L Potassium Level 3.7 mmol/L Chloride Level 102 mmol/L Carbon Dioxide Level 26 mmol/L Anion Gap 8.0 mmol/L Blood Urea Nitrogen 12 mg/dl Creatinine 0.83 mg/dl Est Creatinine Clear Calc Drug Dose 75.0 ml/min Estimated GFR () 84.6 Estimated GFR (Non- 73.0 BUN/Creatinine Ratio 14.2 Random Glucose 208 mg/dl Calcium Level 8.6 mg/dl Assessment & Plan Assessment: Left hip fracture Plan: Dr. Funez has reviewed the films. AP film of the left hip appears to be an impacted subcapital hip fracture however on the lateral aspect film, the fracture appears to be further down the neck. He would like to get an AP pelvis as well as a CT scan without IV contrast to further evaluate the fracture. Once the CT scan is assessed, plans would likely be for ORIF with 7.3 cannulated screws versus trochanteric femoral nailing.
[2017-10-15] MEDS: LORAZEPAM INJ 0.5 MG in SYRINGE 0.75 ML IV PRN ×2 (08:26→21:17)
[2017-10-15 08:42] LABS: HEMOGLOBIN A1C 8.3 % (4.5-5.6)
--- NOTE | 2017-10-15 08:47 | DIAGNOSTIC IMAGING REPORT ---
LEFT HIP CT CT DOSE: 922.56 mGy.cm HISTORY: Left hip fracture. Follow-up. TECHNIQUE: Multiaxial CT images of the left hip were performed and reformatted in the sagittal and coronal plane without the use of contrast. A dose lowering technique was utilized adhering to the principles of ALARA. COMPARISON: Left hip radiograph 10/14/2017. FINDINGS: There is confirmation of the left femoral intertrochanteric fracture. This is slightly impacted and angulated. No dislocation of the left hip. The visualized pelvic bones are intact. Mild osteoarthritis within the left hip. Mild subcutaneous edema within the left hip. A Gomez catheter is in place. IMPRESSION: Confirmation of the left femoral intertrochanteric hip fracture. No dislocation. Electronically signed by: Mode Ochoa M.D. 10/15/2017 8:46 AM Dictated Date/Time: 10/15/2017 8:43 AM
--- NOTE | 2017-10-15 08:54 | DIAGNOSTIC IMAGING REPORT ---
PELVIS 1 OR 2 VIEW ROUTINE CLINICAL HISTORY: 66 years-old Female presenting with left hip fx. TECHNIQUE: Single frontal view of the pelvis was obtained. COMPARISON: CT performed the same day. FINDINGS: Minimally displaced basocervical fracture of the left femoral neck evidenced by cortical discontinuity medially and radiolucency in the basocervical region. The femoral heads remaining congruent and acetabula. No significant angulation. The bony pelvis is intact. Osteopenia may be present. IMPRESSION: Minimally displaced basocervical left femoral neck fracture. Electronically signed by: Jose Guadalupe Watson M.D. 10/15/2017 8:53 AM Dictated Date/Time: 10/15/2017 8:50 AM
[2017-10-15] MEDS: MONTELUKAST SOD 10 MG TAB PO SCH (10:18)
[2017-10-15] MEDS: ESCITALOPRAM OXALATE 10 MG TAB PO SCH (10:18)
[2017-10-15] MEDS: FLUTICASONE PROPIONATE NA SPR 16 GM BTL NAE SCH (10:18)
[2017-10-15] MEDS: ATORVASTATIN 40 MG TAB PO SCH (10:18)
[2017-10-15] MEDS ORDERED: PHARMACY GLYCEMIC MGMT CONSULT PRN (11:41)
[2017-10-15] MEDS ORDERED: ALBUTEROL 0.083% NEBU SOLN 3 ML VIAL INH PRN (12:00)
[2017-10-15] MEDS ORDERED: INSULIN GLARGINE SOLOSTAR 100 UNITS/ML 3 ML PEN SC SCH (12:30)
--- NOTE | 2017-10-15 14:22 | Pharmacy Progress Note ---
Glycemic Control Intl Consult Date of Service Oct 15, 2017. Scope Glycemic Pharmacist consulted by Dr Segura on 10/15/17 for glycemic control and to write orders per [facility] inpatient glycemic control protocol Objective Weight (Kilograms): 95.000 Accuchecks BSG (last 24hrs): Test 10/14/17 15:48 10/14/17 20:25 10/15/17 06:00 10/15/17 06:35 Random Glucose 89 mg/dl (70-99) 208 mg/dl (70-99) Bedside Glucose 255 mg/dl (70-90) 209 mg/dl (70-90) Laboratory Data (last 24hrs) Test 10/14/17 15:48 10/15/17 06:35 Anion Gap 7.0 mmol/L 8.0 mmol/L BUN/Creatinine Ratio 14.3 14.2 Blood Urea Nitrogen 13 mg/dl 12 mg/dl Creatinine 0.92 mg/dl 0.83 mg/dl Potassium Level 3.9 mmol/L 3.7 mmol/L Sodium Level 139 mmol/L 137 mmol/L White Blood Count 10.50 K/uL 12.47 K/uL Red Blood Count 5.00 M/uL Hemoglobin 14.7 g/dL Hematocrit 42.3 % Mean Corpuscular Volume 84.6 fL Mean Corpuscular Hemoglobin 29.4 pg Mean Corpuscular Hemoglobin Concent 34.8 g/dl Platelet Count 214 K/uL Mean Platelet Volume 11.6 fL Neutrophils (%) (Auto) 59.2 % Lymphocytes (%) (Auto) 31.0 % Monocytes (%) (Auto) 7.2 % Eosinophils (%) (Auto) 1.8 % Basophils (%) (Auto) 0.2 % Neutrophils # (Auto) 6.22 K/uL Lymphocytes # (Auto) 3.25 K/uL Monocytes # (Auto) 0.76 K/uL Eosinophils # (Auto) 0.19 K/uL Basophils # (Auto) 0.02 K/uL Hemoglobin A1c 8.3 % HbA1c Test 10/15/17 06:35 Hemoglobin A1c 8.3 % (4.5-5.6) H Recent Pertinent Medications Outpatient Anti-diabetic Regimen: * Glargine 31 units SQ HS * Humalog per Scale up to 75 units/day The patient is currently receiving: * Basal insulin: None * Correctional Insulin: Novolog Correction per scale ACHS Goal Range: Low 110 mg/dL - High 150 mg/dL Correction Factor: 35 mg/dL/unit * Prandial insulin: Per carb ratio of 1 unit per 12 grams CHO consumed Assessment & Plan ASSESSMENT: * 66yo T2DM female with near adequate outpatient control of diabetes. Goal A1c is likely 7-8.5% based on age/co-morbidities * Pt admitted with hip fracture last evening, kept NPO in anticipation of possible surgery. * NovoLog bolus insulin ordered but no basal insulin ordered. Pt is on basal insulin as an outpatient * Will resume reduced outpatient basal insulin dosing for NPO status. Usually 50-80% of dose is recommended while NPO * Will keep dosing once daily to ease the transition back to outpatient once daily dosing in the evening. * Critical to keep BSGs below 200 mg/dl (ideally less than 150 mg/dl) prior to, and, in the first 3 days post op to prevent post op infectious complications. PLAN FOR INPATIENT GLYCEMIC CONTROL: * Holding outpatient oral diabetes medications * Basal insulin * Lantus 24 units SQ Q24hrs, first dose now, then will work dosing back to HS * This is a 20% reduction in outpatient dosing for NPO * Bolus insulin * NovoLog per scale ACHS or Q6hrs while NPO * Goal Range: Low 110 mg/dL - High 150 mg/dL * Correction Factor: 25 mg/dL/unit * Nutritional / Prandial insulin per carb ratio of 1 unit per 8 grams CHO consumed * Please note that the plan above was derived based on current level of insulin resistance and hospital stress. These recommendations are appropriate for inpatient admission only. Plan of care upon discharge will need to be reassessed to avoid potential outpatient hypo/hyperglycemia. Thank you.
--- NOTE | 2017-10-15 14:43 | History & Physical Bridge Note ---
H&P Re-Evaluation Bridge Note: I have examined the patient, reviewed the History & Physical and in the interval since the performance of the History & Physical I have noted the following changes of clinical significance: No changes noted
[2017-10-15] MEDS ORDERED: ALBUT/IPRATROP 3MG/0.5MG NEB 3 ML VIAL INH ONE (15:30)
[2017-10-15] MEDS ORDERED: FENTANYL CITRATE INJ 50 MCG/1 ML 2 ML VIAL ONE (15:43)
[2017-10-15] MEDS ORDERED: MIDAZOLAM HCL 1 MG/ML 2ML VIAL ONE (15:43)
[2017-10-15] MEDS ORDERED: LIDOCAINE HCL 2% 2 ML VIAL (20MG/ML) ONE (15:43)
[2017-10-15] MEDS ORDERED: PROPOFOL IV EMULSION 10 MG/ML 20 ML VIAL IV ONE (15:43)
[2017-10-15] MEDS ORDERED: NURSING DECISION MEDICATION ORDER SCH (16:00)
[2017-10-15] MEDS ORDERED: CEFAZOLIN IV 2,000 MG in DEXTROSE 5% 50ML 50 ML IV SCH (16:15)
[2017-10-15] MEDS ORDERED: ONDANSETRON INJ 2 MG/ML 2 ML VIAL IV PRN ×2 (16:15→16:30)
[2017-10-15] MEDS ORDERED: EpHEDrine SULFATE INJ 50 MG/ML AMP IV PRN (16:30)
[2017-10-15] MEDS ORDERED: PHENYLEPHRINE 100MCG/ML 5ML SYR IV PRN (16:30)
[2017-10-15] MEDS ORDERED: HYDROmorphone INJ 2 MG/ML SYR/VIAL IV PRN (16:30)
[2017-10-15] MEDS ORDERED: ATROPINE SULFATE 0.1 MG/ML 5ML SYR IV PRN (16:30)
[2017-10-15] MEDS ORDERED: PHENYLEPHRINE 100MCG/ML 5ML SYR ONE (16:35)
[2017-10-15] MEDS ORDERED: ONDANSETRON INJ 2 MG/ML 2 ML VIAL ONE (16:46)
[2017-10-15] MEDS ORDERED: PHENYLEPHRINE HCL INJ 10 MG/ML VIAL ONE (17:09)
--- NOTE | 2017-10-15 17:27 | [facility] Post Operative Brief Note ---
Immediate Operative Summary Operative Date Oct 15, 2017. Pre-Operative Diagnosis Left Intertrochanteric Hip Fracture Post-Operative Diagnosis Left Intertrochanteric Hip Fracture Procedure(s) Performed Left Intramedullary Troch Nail Surgeon Dr. Carmelo Funez Cruise Agent Surgeon(s) none Estimated Blood Loss 15ML Findings Consistent with Post-Op Diagnosis Specimens no specimens per surgeon Dr. Carmelo Funez Drains None Anesthesia Type Spinal MAC Complication(s) none Disposition Disposition: Recovery Room / PACU
--- NOTE | 2017-10-15 17:30 | [facility] Operative Report ---
Operative Report Operative Date Oct 15, 2017. Pre-Operative Diagnosis Left Intertrochanteric Hip Fracture Post-Operative Diagnosis Left Intertrochanteric Hip Fracture Procedure(s) Performed Left Intramedullary Troch with 11 mm helical blade by 105 mm utilizing a Synthes 12 mm x [address] Carmelo Funez Tax Examiner Surgeon(s) none Estimated Blood Loss 15ML Findings Patient presents with an intertrochanteric fracture of the left hip after sustaining a fall while at home there to be minimally to nondisplaced Specimens no specimens per surgeon Dr. Carmelo Funez Drains None Anesthesia Type MAC Spinal Regional Complication(s) none Disposition Recovery Room / PACU Indications Patient presents with an intertrochanteric fracture of left hip after having had a fall at home presents with a minimally displaced intertrochanteric hip fracture Description of Procedure After proper prepping draping the left hip region while the patient placed on a hip fracture table the fracture was reduced in anatomic position both AP and lateral planes under fluoroscopic guidance prior to prepping and draping subsequently prepping draping and the left hip was appropriately under fluoroscopic guidance a 3 cm incision made over the tip of the greater trochanter under palpation and fluoroscopic guidance of the lateral tip of the greater trochanter in the midportion anterior posterior was identified and a guidepin was placed subsequent the most proximal portion of the femoral trochanter was reamed utilizing a medium length 12 mm x 2 and 35 mm trocar was placed the femoral the center of the head neck was identified utilizing fluoroscopic guidance for pin placement the pin placement was just south of the equator in the femoral neck the patient was taken to within 7-8 mm the subchondral bone the helical blade was then subsequently placed fracture was reduced in anatomic position with AP and lateral planes mild lateral compression was placed on the distal interlocking screw was placed under direct visualization with the lateral aiming guide the wound was irrigated with good response of sterile saline solution meticulous hemostasis obtained to maintain the deep fascia closed #0 Vicryl subcu was closed with 2-0 Vicryl skin was closed with skin clips a sterile compression dressing was placed patient taken to recovery in stable condition I attest to the content of the Intraoperative Record and any orders documented therein. Any exceptions are noted below.
--- NOTE | 2017-10-15 17:45 | Anesthesiology Progress Note ---
Anesthesia Post Op Note Date & Time Oct 15, 2017 at 17:44 Vital Signs Pain Intensity: 0 Vital Signs Past 12 Hours Date Time Temp Pulse Resp B/P (MAP) Pulse Ox O2 Delivery O2 Flow Rate FiO2 10/15/17 17:40 83 16 124/77 97 Oxymask 3 10/15/17 17:32 36.2 89 18 104/83 97 Oxymask 5 10/15/17 07:18 37.1 83 20 155/86 (109) 93 Room Air 10/15/17 07:15 Room Air 10/15/17 07:02 83 16 93 Room Air Notes Mental Status: alert / awake / arousable, participated in evaluation Pt Amnestic to Procedure: Yes Nausea / Vomiting: adequately controlled Pain: adequately controlled Airway Patency, RR, SpO2: stable & adequate BP & HR: stable & adequate Hydration State: stable & adequate Anesthetic Complications: no major complications apparent
--- NOTE | 2017-10-15 18:21 | DIAGNOSTIC IMAGING REPORT ---
INTRAOPERATIVE RADIOGRAPHS CLINICAL HISTORY: Open reduction and internal fixation of left femur. Fluoroscopy time: 102 seconds. FINDINGS: 3 spot fluoroscopic views of the left femur are correlated with pelvic radiograph dated 10/15/2017. There has been intertrochanteric and intramedullary nail fixation of a fracture through the left femoral neck. Near-anatomic alignment is maintained. A single cortical lag screw transfixes the distal aspect of the intramedullary nail. IMPRESSION: Intraoperative images from open reduction and internal fixation of the left femur as above. Electronically signed by: Francisco Schmid M.D. 10/15/2017 6:20 PM Dictated Date/Time: 10/15/2017 6:18 PM
--- NOTE | 2017-10-15 18:23 | DIAGNOSTIC IMAGING REPORT ---
L PELVIS/UNILATERAL HIP 2-3VIEWS HISTORY: 66 years-old Female post op AP / Lateral Left Hip status post placement of a intertrochanteric nail with intramedullary efren. Acute intertrochanteric fracture of the left femur COMPARISON: Pelvis radiograph 10/15/2017 TECHNIQUE: Single AP view of the pelvis with 2 views of the left hip FINDINGS: Pelvic ring appears intact. At least mild degenerative changes of the bilateral hips. Right femur appears intact. There is improved alignment of the acute intertrochanteric fracture of the proximal left femur with interval placement of an intratrochanteric nail with medullary efren. Single lateral approach cannulated screw noted within the proximal femoral shaft. Expected postsurgical soft tissue swelling and deep tissue air about the left hip. Skin ana are also noted. IMPRESSION: Improved alignment of the acute intertrochanteric fracture of the left femur with interval placement of an intratrochanteric nail with medullary efren. The above report was generated using voice recognition software. It may contain grammatical, syntax or spelling errors. Electronically signed by: Nicholas Yusuf M.D. 10/15/2017 6:21 PM Dictated Date/Time: 10/15/2017 6:15 PM
--- NOTE | 2017-10-15 18:45 | Progress Note ---
Subjective Date of Service: Oct 15, 2017. Subjective Pt evaluation today including: conversation w/ patient, physical exam, lab review, review of studies, review of inpatient medication list Saw/examined the patient in room 377 returned back from OR just prior to my arrival no pain currently on L hip very eager to go home as soon as possible Problem List Medical Problems: (1) Contusion of left knee Status: Acute (2) Fall from slip, trip, or stumble Status: Acute Review of Systems Constitutional: No fever, No chills Respiratory: No cough, No sputum, No shortness of breath Cardiac: No chest pain Abdomen: No pain, No nausea, No vomiting, No diarrhea Musculoskeletal: + see HPI, No joint pain Medications Current Inpatient Medications Medications (Trade) Dose Ordered Sig/Parminder Route Start Time Stop Time Status Last Admin Dose Admin Naloxone HCl (Narcan Inj) 0.1 mg PRN PRN IV 10/14/17 18:45 11/13/17 18:44 Senna/Docusate Sodium (Senokot S Tab) 2 tab HS PO 10/14/17 21:00 11/13/17 20:59 Polyethylene (Miralax Powder Packet) 17 gm DAILY PRN PO 10/14/17 18:45 11/13/17 18:44 Magnesium Hydroxide (Milk Of Magnesia Susp) 30 ml DAILY PRN PO 10/14/17 18:45 11/13/17 18:44 Bisacodyl (Dulcolax Supp) 10 mg DAILY PRN CA 10/14/17 18:45 11/13/17 18:44 Sodium Biphosphate/ Sodium Phosphate (Fleet Enema) 132 ml PRN PRN CA 10/14/17 18:45 Acetaminophen (Tylenol Tab) 650 mg Q4H PRN PO 10/14/17 18:45 11/13/17 18:44 Ondansetron HCl (Zofran Inj) 4 mg Q6H PRN IV 10/14/17 18:45 11/13/17 18:44 Morphine Sulfate (MoRPHine SULFATE INJ) 4 mg Q4 PRN IV 10/14/17 18:45 10/28/17 18:44 Glucose (Glucose 40% Gel) 15-30 GRAMS 15 GRAMS... UD PRN PO 10/14/17 18:45 11/13/17 18:44 Glucose (Glucose Chew Tab) 4-8 Tablets 4 Tabl... UD PRN PO 10/14/17 18:45 11/13/17 18:44 Dextrose (Dextrose 50% 50ML Syringe) 25-50ML OF 50% DW IV FOR... UD PRN IV 10/14/17 18:45 11/13/17 18:44 Glucagon (Glucagon Inj) 1 mg UD PRN SQ 10/14/17 18:45 11/13/17 18:44 Atorvastatin Calcium (Lipitor Tab) 80 mg QAM PO 10/15/17 09:00 11/14/17 08:59 10/15/17 10:18 80 MG Escitalopram Oxalate (Lexapro Tab) 10 mg DAILY PO 10/15/17 09:00 11/14/17 08:59 10/15/17 10:18 10 MG Fluticasone Propionate (Flonase Nasal [place]) 2 sprays DAILY DAVID 10/15/17 09:00 11/14/17 08:59 10/15/17 10:18 2 SPRAYS Latanoprost (Xalatan Oph Soln) 1 drops HS OP 10/14/17 21:00 11/13/17 20:59 10/14/17 21:10 1 DROPS Levothyroxine Sodium (Synthroid Tab) 100 mcg DAILYBB PO 10/15/17 06:00 11/14/17 05:59 10/15/17 06:19 100 MCG Montelukast Sodium (Singulair Tab) 10 mg DAILY PO 10/15/17 09:00 11/14/17 08:59 10/15/17 10:18 10 MG Lorazepam 0.5 mg/ Syringe 1 ml @ 0.5 mls/min Q8H PRN IV 10/15/17 07:45 11/14/17 07:44 10/15/17 08:26 0.5 MLS/MIN Insulin Glargine (Lantus Solostar Pen) 24 units HS SC 10/15/17 12:30 11/14/17 12:29 10/15/17 12:43 24 UNITS Miscellaneous Information (Consult Glycemic Management Pharmacy) 1 ea UD PRN N/A 10/15/17 11:41 11/14/17 11:40 Albuterol Sulfate (Ventolin 0.083% 2.5MG/3ML Neb) 2.5 mg Q4 PRN INH 4/10/18 12:00 11/14/17 11:59 Insulin Aspart (novoLOG ASPART) SLIDING SCALE If C... ACHS SC 10/15/17 17:15 11/14/17 17:14 Oxycodone HCl (Roxicodone Immediate Rel Tab) 1 tab for pain 1-4 2 tabs ... Q6 PRN PO 10/15/17 16:30 10/29/17 16:29 Hydromorphone HCl (Dilaudid Inj) 0.5 mg Q5M PRN IV 10/15/17 16:30 10/15/17 21:30 Ondansetron HCl (Zofran Inj) 4 mg ONE PRN IV 10/15/17 16:30 10/15/17 21:30 Ephedrine Sulfate (EpHEDrine SULFATE INJ) 5 mg Q5M PRN IV 10/15/17 16:30 10/15/17 21:30 Atropine Sulfate (Atropine Sulfate 0.1mg/ml Inj) 0.5 mg Q1M PRN IV 10/15/17 16:30 10/15/17 21:30 Phenylephrine HCl ([place]-Synephrine 500MCG/5ML Syr) 100 mcg Q5M PRN IV 10/15/17 16:30 10/15/17 21:30 Cefazolin Sodium 2000 mg/Syringe 15 ml @ 3.75 mls/ min Q8H IV 10/16/17 01:00 10/16/17 09:03 Objective Vital Signs Date Time Temp Pulse Resp B/P (MAP) Pulse Ox O2 Delivery O2 Flow Rate FiO2 10/15/17 18:10 84 16 123/75 96 Nasal Cannula 3 10/15/17 18:00 87 15 112/82 96 Nasal Cannula 3 10/15/17 17:58 98 16 91 Nasal Cannula 1.5 10/15/17 17:50 36.2 87 16 100/86 97 Nasal Cannula 3 10/15/17 17:40 83 16 124/77 97 Oxymask 3 10/15/17 17:32 36.2 89 18 104/83 97 Oxymask 5 10/15/17 07:18 37.1 83 20 155/86 (109) 93 Room Air 10/15/17 07:15 Room Air 10/15/17 07:02 83 16 93 Room Air 10/15/17 01:50 86 16 96 Room Air 10/14/17 23:33 Room Air 10/14/17 22:55 37.3 86 16 152/78 (102) 93 Room Air 10/14/17 20:03 36.8 90 16 145/79 90 Room Air 10/14/17 19:11 85 176/91 96 Physical Exam General Appearance: no apparent distress Respiratory/Chest: chest non-tender, no respiratory distress, no accessory muscle use, + wheezing (mild end expiratory wheezing at bases) Cardiovascular: regular rate, rhythm, no edema, no murmur Extremities: normal inspection, no pedal edema Neurologic/Psychiatric: no motor/sensory deficits, alert, normal mood/affect Laboratory Results Last 24 Hours Test 10/14/17 20:25 10/15/17 06:00 10/15/17 06:35 10/15/17 12:04 Bedside Glucose 255 mg/dl 209 mg/dl 222 mg/dl White Blood Count 12.47 K/uL Red Blood Count 4.93 M/uL Hemoglobin 14.1 g/dL Hematocrit 41.7 % Mean Corpuscular Volume 84.6 fL Mean Corpuscular Hemoglobin 28.6 pg Mean Corpuscular Hemoglobin Concent 33.8 g/dl RDW Standard Deviation 42.0 fL RDW Coefficient of Variation 13.7 % Platelet Count 210 K/uL Mean Platelet Volume 12.2 fL Sodium Level 137 mmol/L Potassium Level 3.7 mmol/L Chloride Level 102 mmol/L Carbon Dioxide Level 26 mmol/L Anion Gap 8.0 mmol/L Blood Urea Nitrogen 12 mg/dl Creatinine 0.83 mg/dl Est Creatinine Clear Calc Drug Dose 75.0 ml/min Estimated GFR () 84.6 Estimated GFR (Non- 73.0 BUN/Creatinine Ratio 14.2 Random Glucose 208 mg/dl Estimated Average Glucose 192 mg/dl Hemoglobin A1c 8.3 % Calcium Level 8.6 mg/dl Test 10/15/17 17:50 Bedside Glucose 182 mg/dl Assessment and Plan Patient is a 66 year old female with a PMH of asthma/COPD, tobacco use disorder , insulin dependent DM2, depression/anxiety, hypothyroidism, hx. of CVA - presents after a mechanical fall and subsequently found to have a left femoral intertrochanteric hip fracture. Mechanical Fall with subsequent L Femoral Intertrochanteric Hip Fracture - s/p intertrochanteric nail, POD #0 - patient is doing well - DVT ppx as per ortho - pain management as per ortho - monitor labs in AM - will monitor vitals Insulin Dependent DM2 - Ha1c in June 2017 - 7.7%, Ha1c today (10/15) is 8.3% - Added Lantus 15 units BID and pharmacy glycemic control consulted - continue sliding scale - hold metformin while inpatient Asthma/COPD - mild wheezing - continue home inhalers - incentive spirometer Hypothyroidism - continue home medications Depression/Anxiety - continue home medications DVT ppx - as per ortho FULL CODE
[2017-10-15] MEDS: OXYCODONE HCL IR 5 MG TAB (IMMEDIATE RELEASE) PO PRN (20:38)
[2017-10-15] MEDS: DOCUSATE SODIUM/SENNA 50/8.6MG TAB PO SCH (20:38)
[2017-10-15] MEDS: LATANOPROST 0.005% OP SOLN 2.5 ML BTL OP SCH (20:39)
[2017-10-16] MEDS: CEFAZOLIN IV 2,000 MG in SYRINGE 0 ML IV SCH ×2 (00:56→08:49)
[2017-10-16 04:11] VITALS: BP 145/80; PULSE 85; TEMP 36.9; O2SAT 94
[2017-10-16] MEDS: LEVOTHYROXINE 100 MCG TAB PO SCH (05:16)
[2017-10-16 07:25] VITALS: BP 139/70; PULSE 84; TEMP 37.1; O2SAT 96
--- NOTE | 2017-10-16 08:01 | Orthopedic Progress Note ---
Orthopedic Progress Note Date of Service Oct 16, 2017. Subjective Post OP Day: 1 Reports: feeling well, Denies: chest pain, SOB, nausea / vomiting, light headedness, calf pain Additional Notes: Pt states she's a little sore this AM but feeling much better today. Objective calves soft nontender, N/V intact, dressing C/D/I, A&O x3, toes mobile Date Time Temp Pulse Resp B/P (MAP) Pulse Ox O2 Delivery O2 Flow Rate FiO2 10/16/17 07:25 37.1 84 16 139/70 (93) 96 3.0 10/16/17 04:11 36.9 85 16 145/80 (101) 94 Nasal Cannula 3.5 10/15/17 23:41 37.4 84 16 152/79 (103) 93 Nasal Cannula 3.5 10/15/17 23:23 Nasal Cannula 3.5 10/15/17 21:30 36.6 78 18 135/75 (95) 95 Nasal Cannula 3.0 10/15/17 20:30 36.7 88 20 132/67 (88) 86 Nasal Cannula 2.0 10/15/17 19:30 36.8 84 18 133/85 (101) 94 Nasal Cannula 2.0 10/15/17 19:00 36.8 88 20 132/67 (88) 93 Nasal Cannula 2.0 10/15/17 18:31 36.9 85 16 139/70 (93) 94 Nasal Cannula 2.0 10/15/17 18:30 Nasal Cannula 2.0 10/15/17 18:29 Nasal Cannula 2.0 10/15/17 18:10 84 16 123/75 96 Nasal Cannula 3 10/15/17 18:00 87 15 112/82 96 Nasal Cannula 3 10/15/17 17:58 98 16 91 Nasal Cannula 1.5 10/15/17 17:50 36.2 87 16 100/86 97 Nasal Cannula 3 10/15/17 17:40 83 16 124/77 97 Oxymask 3 10/15/17 17:32 36.2 89 18 104/83 97 Oxymask 5 Laboratory Results 24 Hours: Test 10/16/17 07:44 Assessment & Plan Assessment: POD 1 s/p Left TFN Plan: AM Labs pending Begin PT/OT Pt planning on going home upon discharge Inhouse Planning Pain Management: Morphine, Oxy IR DVT Prophylaxis: TEDs, SCDs, ASA
--- NOTE | 2017-10-16 08:08 | Consultant Recommendations ---
Blade Balancer Recommendations Date of Service Oct 16, 2017. Blade Balancer Recommendations U DISCHARGE INSTRUCTIONS: HIP FRACTURE SELF CARE INSTRUCTIONS: A. You are to ambulate with a walker or crutches for approximately 6 weeks. B. You are TOE TOUCH WEIGHT BEARING on your operative lower extremity for at least 6 weeks. C. Wear low heeled shoes with non-slip soles D. Be sure that your floors are free of things that could trip you throw rugs, electrical cords, and small objects. Avoid wet and waxed floors, especially with crutches/walker/cane. E. Try to walk several times a day with rest periods between. F. You may shower 72 hours after surgery and get the incision area wet, but DO NOT soak or submerge incision area in water. (No baths, swimming pools, hot tubs ) G. Change the dressing daily for the first week, Once the incision is dry without drainage, you may leave to the open air. If the ana are catching on your clothing, continue to place a dressing over the wound until seen back in the office. Call with any questions about your wound. . H. Do NOT apply soap or any ointment/lotions directly over incision. I. You may use ice as needed to operative site. SPECIAL CARE INSTRUCTIONS: VERY IMPORTANT TO READ AND REVIEW A. You may be at risk for phlebitis or blood clots. a. Wear surgical stockings (BENTLEY hose) for 2 weeks after surgery to improve circulation and reduce swelling. b. Take ASPIRIN 81 mg twice daily for 4 weeks or as directed. This is your blood thinner. B. There are a few signs you need to watch for after you are home. Call [facility] at [phone] if you experience any of the following: a. If you have a temperature of 101 degrees or higher. b. Sudden increase in pain in your hip not relieved by rest or pain medication. c. Any fluid or drainage from the incision; redness of the incision. d. Shortness of breath or chest pain. C. Call your physician if: a. Temperature is greater than 101 degrees (F). b. Pain is not relieved by prescribed pain medications. c. Increase drainage or redness from incision. d. Unanswered questions or concerns. D. Pain Medication: a. You will be prescribed pain medication upon discharge that should last till your first post-operative appointment. b. If you experience nausea and/or skin rash, discontinue this medication and contact our office for an alternative medication. c. Caution- narcotic pain medication can cause constipation. FOLLOW UP VISIT: Please call [facility] at [phone] to schedule a follow up appointment 10-14 days from the date of your surgery date.
[2017-10-16 08:39] LABS: HEMATOCRIT 38.1 % (37-47); HEMOGLOBIN 12.8 g/dL (12.0-16.0); MEAN CELL VOLUME 85.2 fL (80-100); MEAN CORPUSCULAR HEMOGLOBIN 28.6 pg (25-34); MEAN CORPUSCULAR HGB CONC 33.6 g/dl (32-36); MEAN PLATELET VOLUME 12.1 fL (7.4-10.4); PLATELET COUNT 164 K/uL (130-400); RED CELL DISTRIBUTION WIDTH CV 13.8 % (11.5-14.5); RED CELL DISTRIBUTION WIDTH SD 43.1 fL (36.4-46.3); WHITE BLOOD COUNT 9.87 K/uL (4.8-10.8)
[2017-10-16] MEDS: MONTELUKAST SOD 10 MG TAB PO SCH (08:49)
[2017-10-16] MEDS: ATORVASTATIN 40 MG TAB PO SCH (08:49)
[2017-10-16] MEDS: ESCITALOPRAM OXALATE 10 MG TAB PO SCH (08:49)
[2017-10-16] MEDS: INSULIN ASPART 100 UNITS/ML 3 ML PEN SC SCH ×4 (08:49→20:45)
[2017-10-16] MEDS: FLUTICASONE PROPIONATE NA SPR 16 GM BTL NAE SCH (08:49)
[2017-10-16] MEDS: ASPIRIN 81 MG ECTAB PO SCH ×2 (09:05→20:41)
[2017-10-16 09:08] LABS: CALCIUM 8.1 mg/dl (8.5-10.1); CREATININE 0.78 mg/dl (0.60-1.20); POTASSIUM 3.8 mmol/L (3.5-5.1)
[2017-10-16] MEDS: OXYCODONE HCL IR 5 MG TAB (IMMEDIATE RELEASE) PO PRN (09:59)
--- NOTE | 2017-10-16 11:01 | Anesthesiology Progress Note ---
Anesthesia Post Op Note Date & Time Oct 16, 2017 at 11:00 Vital Signs Vital Signs Past 12 Hours Date Time Temp Pulse Resp B/P (MAP) Pulse Ox O2 Delivery O2 Flow Rate FiO2 10/16/17 07:25 37.1 84 16 139/70 (93) 96 3.0 10/16/17 04:11 36.9 85 16 145/80 (101) 94 Nasal Cannula 3.5 10/15/17 23:41 37.4 84 16 152/79 (103) 93 Nasal Cannula 3.5 10/15/17 23:23 Nasal Cannula 3.5 Notes Neuraxial Anesthesia: sensory block resolved
[2017-10-16 12:26] VITALS: BP 121/61; PULSE 79; TEMP 37; O2SAT 91
[2017-10-16] MEDS ORDERED: INSULIN GLARGINE SOLOSTAR 100 UNITS/ML 3 ML PEN SC SCH ×2 (12:30→16:45)
--- NOTE | 2017-10-16 12:32 | Pharmacy Progress Note ---
Pharmacy Glycemic Short Note 2 Date of Service Oct 16, 2017. OUTPATIENT ANTIDIABETIC REGIMEN: * Insulin Glargine 31 units SQ PM * Humalog SSI (up to 75 units/day) * A1c = 8.3% on 10/15/17 Item Value Date Time Bedside Glucose 222 mg/dl H 10/15/17 1204 Bedside Glucose 182 mg/dl H 10/15/17 1750 Bedside Glucose 198 mg/dl H 10/15/17 1824 Bedside Glucose 258 mg/dl H 10/15/17 2121 Bedside Glucose 203 mg/dl H 10/16/17 0809 Bedside Glucose 248 mg/dl H 10/16/17 1201 ASSESSMENT: * POD#1, diet advanced and pt tolerating well per CHO counts * All BSGs >200 mg/dl x 24hrs. Goal is to maintain BSGs <200 mg/dl (ideally < 150 mg/dl) to prevent post-op infectious complications. * AM fasting BSG is elevated, pt received reduced outpatient dosing yesterday for NPO status. Will increase back up to outpatient dosing * Post-prandial BSGs are elevated, will tighten CF/CR PLAN FOR INPATIENT GLYCEMIC CONTROL: * Resume oral diabetes medications now that tolerating PO and Scr WNL * Basal insulin: increase dosing back to outpatient dosing * Lantus 31 units SQ Q24hrs - start now * Bolus insulin: tighten parameters * NovoLog per scale ACHS or Q6hrs while NPO * Goal Range: Low 110 mg/dL - High 140 mg/dL * Correction Factor: 20 mg/dL/unit * Nutritional / Prandial insulin per carb ratio of 1 unit per 7 grams CHO consumed PLAN FOR DISCHARGE: * Essential to maintain tight glycemic control to prevent post-op complications * A1c = 8.3% on 10/15/17 * Pt may require slight increase in insulin dosing to maintain BSG <150 mg/dl. Will re-evaluate closer to discharge since outpatient doses are being resumed today.
[2017-10-16] MEDS ORDERED: METFORMIN HCL 500 MG TABCR PO ONE (12:45)
[2017-10-16 14:17] VITALS: BP 137/73; PULSE 82; O2SAT 90
--- NOTE | 2017-10-16 15:10 | Progress Note ---
Subjective Date of Service: Oct 16, 2017. Subjective Pt evaluation today including: conversation w/ patient, physical exam, lab review, review of studies, review of inpatient medication list Saw/examined the patient in room 377 She is seated in a chair States her pain is controlled Is doing well with a walker and toe touch on the L side Denies any other problems Would be okay with home health She wants a motorized scooter, a new walker, and a bedside commode Problem List Medical Problems: (1) Contusion of left knee Status: Acute (2) Fall from slip, trip, or stumble Status: Acute Review of Systems Constitutional: No fever, No chills Respiratory: No shortness of breath Cardiac: No chest pain Abdomen: No pain, No nausea, No vomiting, No diarrhea, No constipation, No GI bleeding Musculoskeletal: No joint pain, No muscle pain Medications Current Inpatient Medications Medications (Trade) Dose Ordered Sig/Parminder Route Start Time Stop Time Status Last Admin Dose Admin Naloxone HCl (Narcan Inj) 0.1 mg PRN PRN IV 10/14/17 18:45 11/13/17 18:44 Senna/Docusate Sodium (Senokot S Tab) 2 tab HS PO 10/14/17 21:00 11/13/17 20:59 10/15/17 20:38 2 TAB Polyethylene (Miralax Powder Packet) 17 gm DAILY PRN PO 10/14/17 18:45 11/13/17 18:44 Magnesium Hydroxide (Milk Of Magnesia Susp) 30 ml DAILY PRN PO 10/14/17 18:45 11/13/17 18:44 Bisacodyl (Dulcolax Supp) 10 mg DAILY PRN WI 10/14/17 18:45 11/13/17 18:44 Sodium Biphosphate/ Sodium Phosphate (Fleet Enema) 132 ml PRN PRN WI 10/14/17 18:45 Acetaminophen (Tylenol Tab) 650 mg Q4H PRN PO 10/14/17 18:45 11/13/17 18:44 Ondansetron HCl (Zofran Inj) 4 mg Q6H PRN IV 10/14/17 18:45 11/13/17 18:44 Morphine Sulfate (MoRPHine SULFATE INJ) 4 mg Q4 PRN IV 10/14/17 18:45 10/28/17 18:44 Glucose (Glucose 40% Gel) 15-30 GRAMS 15 GRAMS... UD PRN PO 10/14/17 18:45 11/13/17 18:44 Glucose (Glucose Chew Tab) 4-8 Tablets 4 Tabl... UD PRN PO 10/14/17 18:45 11/13/17 18:44 Dextrose (Dextrose 50% 50ML Syringe) 25-50ML OF 50% DW IV FOR... UD PRN IV 10/14/17 18:45 11/13/17 18:44 Glucagon (Glucagon Inj) 1 mg UD PRN SQ 10/14/17 18:45 11/13/17 18:44 Atorvastatin Calcium (Lipitor Tab) 80 mg QAM PO 10/15/17 09:00 11/14/17 08:59 10/16/17 08:49 80 MG Escitalopram Oxalate (Lexapro Tab) 10 mg DAILY PO 10/15/17 09:00 11/14/17 08:59 10/16/17 08:49 10 MG Fluticasone Propionate (Flonase Nasal Weed) 2 sprays DAILY DAVID 10/15/17 09:00 11/14/17 08:59 10/16/17 08:49 2 SPRAYS Latanoprost (Xalatan Oph Soln) 1 drops HS OP 10/14/17 21:00 11/13/17 20:59 10/15/17 20:39 1 DROPS Levothyroxine Sodium (Synthroid Tab) 100 mcg DAILYBB PO 10/15/17 06:00 11/14/17 05:59 10/16/17 05:16 100 MCG Montelukast Sodium (Singulair Tab) 10 mg DAILY PO 10/15/17 09:00 11/14/17 08:59 10/16/17 08:49 10 MG Lorazepam 0.5 mg/ Syringe 1 ml @ 0.5 mls/min Q8H PRN IV 10/15/17 07:45 11/14/17 07:44 10/15/17 21:17 0.5 MLS/MIN Miscellaneous Information (Consult Glycemic Management Pharmacy) 1 ea UD PRN N/A 10/15/17 11:41 11/14/17 11:40 Albuterol Sulfate (Ventolin 0.083% 2.5MG/3ML Neb) 2.5 mg Q4 PRN INH 10/15/17 12:00 11/14/17 11:59 Insulin Aspart (novoLOG ASPART) SLIDING SCALE If C... ACHS SC 10/15/17 17:15 11/14/17 17:14 10/16/17 12:50 16 UNITS Oxycodone HCl (Roxicodone Immediate Rel Tab) 1 tab for pain 1-4 2 tabs ... Q6 PRN PO 10/15/17 16:30 10/29/17 16:29 10/16/17 09:59 10 MG Aspirin (Ecotrin Tab) 81 mg BID PO 10/16/17 09:00 11/15/17 08:59 10/16/17 09:05 81 MG Insulin Glargine (Lantus Solostar Pen) 31 units QDD SC 10/16/17 12:30 11/15/17 12:29 10/16/17 12:51 31 UNITS Metformin HCl (Glucophage Extended Rel Tab) 1,000 mg BIDM PO 10/16/17 17:45 11/15/17 17:44 Objective Vital Signs Date Time Temp Pulse Resp B/P (MAP) Pulse Ox O2 Delivery O2 Flow Rate FiO2 10/16/17 14:17 82 90 10/16/17 12:26 37.0 79 20 121/61 (81) 91 Nasal Cannula 2.0 10/16/17 07:45 Nasal Cannula 2.0 10/16/17 07:25 37.1 84 16 139/70 (93) 96 3.0 10/16/17 04:11 36.9 85 16 145/80 (101) 94 Nasal Cannula 3.5 10/15/17 23:41 37.4 84 16 152/79 (103) 93 Nasal Cannula 3.5 10/15/17 23:23 Nasal Cannula 3.5 10/15/17 21:30 36.6 78 18 135/75 (95) 95 Nasal Cannula 3.0 10/15/17 20:30 36.7 88 20 132/67 (88) 86 Nasal Cannula 2.0 10/15/17 19:30 36.8 84 18 133/85 (101) 94 Nasal Cannula 2.0 10/15/17 19:00 36.8 88 20 132/67 (88) 93 Nasal Cannula 2.0 10/15/17 18:31 36.9 85 16 139/70 (93) 94 Nasal Cannula 2.0 10/15/17 18:30 Nasal Cannula 2.0 10/15/17 18:29 Nasal Cannula 2.0 10/15/17 18:10 84 16 123/75 96 Nasal Cannula 3 10/15/17 18:00 87 15 112/82 96 Nasal Cannula 3 10/15/17 17:58 98 16 91 Nasal Cannula 1.5 10/15/17 17:50 36.2 87 16 100/86 97 Nasal Cannula 3 10/15/17 17:40 83 16 124/77 97 Oxymask 3 10/15/17 17:32 36.2 89 18 104/83 97 Oxymask 5 Physical Exam General Appearance: no apparent distress Respiratory/Chest: no respiratory distress, no accessory muscle use Cardiovascular: regular rate, rhythm, no edema, no murmur Extremities: normal range of motion, non-tender, normal inspection, no pedal edema, no calf tenderness Laboratory Results Last 24 Hours Test 10/15/17 17:50 10/15/17 18:24 10/15/17 21:21 10/16/17 07:44 Bedside Glucose 182 mg/dl 198 mg/dl 258 mg/dl White Blood Count 9.87 K/uL Red Blood Count 4.47 M/uL Hemoglobin 12.8 g/dL Hematocrit 38.1 % Mean Corpuscular Volume 85.2 fL Mean Corpuscular Hemoglobin 28.6 pg Mean Corpuscular Hemoglobin Concent 33.6 g/dl RDW Standard Deviation 43.1 fL RDW Coefficient of Variation 13.8 % Platelet Count 164 K/uL Mean Platelet Volume 12.1 fL Sodium Level 137 mmol/L Potassium Level 3.8 mmol/L Chloride Level 103 mmol/L Carbon Dioxide Level 26 mmol/L Anion Gap 8.0 mmol/L Blood Urea Nitrogen 11 mg/dl Creatinine 0.78 mg/dl Est Creatinine Clear Calc Drug Dose 79.8 ml/min Estimated GFR () 91.2 Estimated GFR (Non- 78.7 BUN/Creatinine Ratio 13.8 Random Glucose 223 mg/dl Calcium Level 8.1 mg/dl Test 10/16/17 08:09 10/16/17 12:01 Bedside Glucose 203 mg/dl 248 mg/dl Assessment and Plan Patient is a 66 year old female with a PMH of asthma/COPD, tobacco use disorder , insulin dependent DM2, depression/anxiety, hypothyroidism, hx. of CVA - presents after a mechanical fall and subsequently found to have a left femoral intertrochanteric hip fracture. Mechanical Fall with subsequent L Femoral Intertrochanteric Hip Fracture 10/16 - doing well - will d/c home on 10/17; with home health; walker, bedside commode; wants a motorized scooter - may need Percocet PRN on discharge 10/15 - s/p intertrochanteric nail, POD #0 - patient is doing well - DVT ppx as per ortho - pain management as per ortho - monitor labs in AM - will monitor vitals Insulin Dependent DM2 - Ha1c in June 2017 - 7.7%, Ha1c today (10/15) is 8.3% - Added Lantus 15 units BID and pharmacy glycemic control consulted - continue sliding scale - hold metformin while inpatient Asthma/COPD - mild wheezing - continue home inhalers - incentive spirometer Hypothyroidism - continue home medications Depression/Anxiety - continue home medications DVT ppx - as per ortho FULL CODE
[2017-10-16 15:15] VITALS: BP 100/59; PULSE 79; TEMP 36.9; O2SAT 90
[2017-10-16] MEDS: METFORMIN HCL 500 MG TABCR PO SCH (18:17)
[2017-10-16] MEDS: LATANOPROST 0.005% OP SOLN 2.5 ML BTL OP SCH (20:40)
[2017-10-16] MEDS: DOCUSATE SODIUM/SENNA 50/8.6MG TAB PO SCH (20:42)
[2017-10-16 23:00] VITALS: BP 143/77; PULSE 87; TEMP 37.1; O2SAT 92
[2017-10-17] MEDS: LEVOTHYROXINE 100 MCG TAB PO SCH (05:13)
[2017-10-17] MEDS: ACETAMINOPHEN 325 MG TAB PO PRN ×2 (06:20→11:14)
[2017-10-17 06:45] LABS: HEMATOCRIT 38.3 % (37-47); HEMOGLOBIN 12.7 g/dL (12.0-16.0); MEAN CELL VOLUME 85.5 fL (80-100); MEAN CORPUSCULAR HEMOGLOBIN 28.3 pg (25-34); MEAN CORPUSCULAR HGB CONC 33.2 g/dl (32-36); MEAN PLATELET VOLUME 11.4 fL (7.4-10.4); PLATELET COUNT 161 K/uL (130-400); RED CELL DISTRIBUTION WIDTH CV 13.7 % (11.5-14.5); RED CELL DISTRIBUTION WIDTH SD 42.8 fL (36.4-46.3); WHITE BLOOD COUNT 11.93 K/uL (4.8-10.8)
[2017-10-17 07:13] LABS: CALCIUM 8.6 mg/dl (8.5-10.1); CREATININE 0.87 mg/dl (0.60-1.20); POTASSIUM 3.8 mmol/L (3.5-5.1)
--- NOTE | 2017-10-17 08:01 | Orthopedic Progress Note ---
Orthopedic Progress Note Date of Service Oct 17, 2017. Subjective Post OP Day: 2 Reports: feeling well, complaints (mild headache) Additional Notes: Discussed how well she was doing in PT. Pt needs to increase her ambulation distance before returning home. Discussed her safety at home. Her will not be with her all of the time and will be gone a good portion of the day. Objective calves soft nontender, N/V intact, dressing C/D/I, A&O x3, toes mobile Date Time Temp Pulse Resp B/P (MAP) Pulse Ox O2 Delivery O2 Flow Rate FiO2 10/16/17 23:45 Room Air 10/16/17 23:00 37.1 87 18 143/77 (99) 92 Room Air 10/16/17 15:40 Room Air 10/16/17 15:15 36.9 79 18 100/59 (73) 90 Room Air 10/16/17 14:17 82 90 10/16/17 12:26 37.0 79 20 121/61 (81) 91 Nasal Cannula 2.0 10/16/17 07:45 Nasal Cannula 2.0 Laboratory Results 24 Hours: Test 10/17/17 06:07 Hematocrit 38.3 % Hemoglobin 12.7 g/dL Assessment & Plan Assessment: POD 2 s/p Left TFN Plan: AM Labs pending Begin PT/OT Pt planning on going home upon discharge Slow progress in PT. Needs to progress in PT to go home. We discussed the possibility of going to [facility]. She would rather go home. I told her that she would need to greatly improve her ambulation distance to do so. Discussed the need to be fairly independent with ambulation before going home so that she could get out of the house in case of an emergency etc... Inhouse Planning Pain Management: Morphine, Oxy IR DVT Prophylaxis: TEDs, SCDs, ASA
[2017-10-17 08:05] VITALS: BP 117/67; PULSE 84; TEMP 37.1; O2SAT 90
[2017-10-17] MEDS: ESCITALOPRAM OXALATE 10 MG TAB PO SCH (08:49)
[2017-10-17] MEDS: FLUTICASONE PROPIONATE NA SPR 16 GM BTL NAE SCH (08:49)
[2017-10-17] MEDS: METFORMIN HCL 500 MG TABCR PO SCH (08:49)
[2017-10-17] MEDS: ATORVASTATIN 40 MG TAB PO SCH (08:49)
[2017-10-17] MEDS: MONTELUKAST SOD 10 MG TAB PO SCH (08:49)
[2017-10-17] MEDS: ASPIRIN 81 MG ECTAB PO SCH (08:49)
[2017-10-17] MEDS: INSULIN ASPART 100 UNITS/ML 3 ML PEN SC SCH ×2 (08:53→13:14)
--- NOTE | 2017-10-17 09:57 | Pharmacy Progress Note ---
Pharmacy Glycemic Short Note 2 Date of Service Oct 17, 2017. OUTPATIENT ANTIDIABETIC REGIMEN: * Insulin Glargine 31 units SQ PM * Humalog SSI (up to 75 units/day) * A1c = 8.3% on 10/15/17 Test 10/16/17 12:01 10/16/17 17:01 10/16/17 20:41 10/17/17 06:07 Bedside Glucose 248 mg/dl (70-90) 201 mg/dl (70-90) 220 mg/dl (70-90) Random Glucose 241 mg/dl (70-99) ASSESSMENT: 10/17/17 * Patient received 69 units of insulin yesterday, with BSGs noted above * POD #2 s/p hip surgery, no change to stressors * Fasting and postprandial BSGs are elevated * Increase basal dose by ~20% * Tighten both CF and CR - of note, patient uses significant amt of Novolog as an outpatient, compared to basal dose 10/16/17 * POD#1, diet advanced and pt tolerating well per CHO counts * All BSGs >200 mg/dl x 24hrs. Goal is to maintain BSGs <200 mg/dl (ideally < 150 mg/dl) to prevent post-op infectious complications. * AM fasting BSG is elevated, pt received reduced outpatient dosing yesterday for NPO status. Will increase back up to outpatient dosing * Post-prandial BSGs are elevated, will tighten CF/CR PLAN FOR INPATIENT GLYCEMIC CONTROL: * Continue metformin 1 gm BID * Basal insulin: increase * Lantus 38 units SQ Q24hrs with dinner * Bolus insulin: tighten parameters * NovoLog per scale ACHS or Q6hrs while NPO * Goal Range: Low 110 mg/dL - High 140 mg/dL * Correction Factor: 15 mg/dL/unit * Nutritional / Prandial insulin per carb ratio of 1 unit per 6 grams CHO consumed PLAN FOR DISCHARGE: * Essential to maintain tight glycemic control to prevent post-op complications * A1c = 8.3% on 10/15/17 * Pt may require slight increase in insulin dosing to maintain BSG <150 mg/dl. Will re-evaluate closer to discharge since still titrating insulin doses.
[2017-10-17] MEDS ORDERED: OXYC-57 PO (13:56)
[2017-10-17] MEDS ORDERED: ASPEC81 PO (13:56)
[2017-10-17 14:59] VITALS: BP 116/67; PULSE 86; TEMP 36.6; O2SAT 92
--- NOTE | 2017-10-17 15:49 | Progress Note ---
Subjective Date of Service: Oct 17, 2017. Subjective Pt evaluation today including: conversation w/ patient, physical exam, lab review, review of studies, review of inpatient medication list Saw/examined the patient in room 377 She states she's feeling much better toe touch of the R LE; she states she did better with PT/OT Recommended nursing facility - but she refused Problem List Medical Problems: (1) Contusion of left knee Status: Acute (2) Fall from slip, trip, or stumble Status: Acute Review of Systems Heme: No abnormal bleeding/bruising Medications Current Inpatient Medications Medications (Trade) Dose Ordered Sig/Parminder Route Start Time Stop Time Status Last Admin Dose Admin Naloxone HCl (Narcan Inj) 0.1 mg PRN PRN IV 10/14/17 18:45 11/13/17 18:44 Senna/Docusate Sodium (Senokot S Tab) 2 tab HS PO 10/14/17 21:00 11/13/17 20:59 10/15/17 20:38 2 TAB Polyethylene (Miralax Powder Packet) 17 gm DAILY PRN PO 10/14/17 18:45 11/13/17 18:44 Magnesium Hydroxide (Milk Of Magnesia Susp) 30 ml DAILY PRN PO 10/14/17 18:45 11/13/17 18:44 Bisacodyl (Dulcolax Supp) 10 mg DAILY PRN CO 10/14/17 18:45 11/13/17 18:44 Sodium Biphosphate/ Sodium Phosphate (Fleet Enema) 132 ml PRN PRN CO 10/14/17 18:45 Acetaminophen (Tylenol Tab) 650 mg Q4H PRN PO 10/14/17 18:45 11/13/17 18:44 10/17/17 11:14 650 MG Ondansetron HCl (Zofran Inj) 4 mg Q6H PRN IV 10/14/17 18:45 11/13/17 18:44 Morphine Sulfate (MoRPHine SULFATE INJ) 4 mg Q4 PRN IV 10/14/17 18:45 10/28/17 18:44 Glucose (Glucose 40% Gel) 15-30 GRAMS 15 GRAMS... UD PRN PO 10/14/17 18:45 11/13/17 18:44 Glucose (Glucose Chew Tab) 4-8 Tablets 4 Tabl... UD PRN PO 10/14/17 18:45 11/13/17 18:44 Dextrose (Dextrose 50% 50ML Syringe) 25-50ML OF 50% DW IV FOR... UD PRN IV 10/14/17 18:45 11/13/17 18:44 Glucagon (Glucagon Inj) 1 mg UD PRN SQ 10/14/17 18:45 11/13/17 18:44 Atorvastatin Calcium (Lipitor Tab) 80 mg QAM PO 10/15/17 09:00 11/14/17 08:59 10/17/17 08:49 80 MG Escitalopram Oxalate (Lexapro Tab) 10 mg DAILY PO 10/15/17 09:00 11/14/17 08:59 10/17/17 08:49 10 MG Fluticasone Propionate (Flonase Nasal Hospers) 2 sprays DAILY DAVID 10/15/17 09:00 11/14/17 08:59 10/17/17 08:49 2 SPRAYS Latanoprost (Xalatan Oph Soln) 1 drops HS OP 10/14/17 21:00 11/13/17 20:59 10/16/17 20:40 1 DROPS Levothyroxine Sodium (Synthroid Tab) 100 mcg DAILYBB PO 10/15/17 06:00 11/14/17 05:59 10/17/17 05:13 100 MCG Montelukast Sodium (Singulair Tab) 10 mg DAILY PO 10/15/17 09:00 11/14/17 08:59 10/17/17 08:49 10 MG Lorazepam 0.5 mg/ Syringe 1 ml @ 0.5 mls/min Q8H PRN IV 10/15/17 07:45 11/14/17 07:44 10/15/17 21:17 0.5 MLS/MIN Miscellaneous Information (Consult Glycemic Management Pharmacy) 1 ea UD PRN N/A 10/15/17 11:41 11/14/17 11:40 Albuterol Sulfate (Ventolin 0.083% 2.5MG/3ML Neb) 2.5 mg Q4 PRN INH 10/15/17 12:00 11/14/17 11:59 Insulin Aspart (novoLOG ASPART) SLIDING SCALE If C... ACHS SC 10/15/17 17:15 11/14/17 17:14 10/17/17 13:14 18 UNITS Oxycodone HCl (Roxicodone Immediate Rel Tab) 1 tab for pain 1-4 2 tabs ... Q6 PRN PO 10/15/17 16:30 10/29/17 16:29 10/16/17 09:59 10 MG Aspirin (Ecotrin Tab) 81 mg BID PO 10/16/17 09:00 11/15/17 08:59 10/17/17 08:49 81 MG Metformin HCl (Glucophage Extended Rel Tab) 1,000 mg BIDM PO 10/16/17 17:45 11/15/17 17:44 10/17/17 08:49 1,000 MG Insulin Glargine (Lantus Solostar Pen) 38 units QDD SC 10/17/17 17:45 11/16/17 17:44 Objective Vital Signs Date Time Temp Pulse Resp B/P (MAP) Pulse Ox O2 Delivery O2 Flow Rate FiO2 10/17/17 14:59 36.6 86 18 116/67 (83) 92 Room Air 10/17/17 08:05 37.1 84 18 117/67 (84) 90 Room Air 10/17/17 07:40 Room Air 10/16/17 23:45 Room Air 10/16/17 23:00 37.1 87 18 143/77 (99) 92 Room Air Physical Exam General Appearance: no apparent distress Respiratory/Chest: no respiratory distress, no accessory muscle use Cardiovascular: regular rate, rhythm, no edema, no murmur Extremities: normal inspection, no pedal edema Neurologic/Psychiatric: no motor/sensory deficits, alert, normal mood/affect Laboratory Results Last 24 Hours Test 10/16/17 17:01 10/16/17 20:41 10/17/17 06:07 Bedside Glucose 201 mg/dl 220 mg/dl White Blood Count 11.93 K/uL Red Blood Count 4.48 M/uL Hemoglobin 12.7 g/dL Hematocrit 38.3 % Mean Corpuscular Volume 85.5 fL Mean Corpuscular Hemoglobin 28.3 pg Mean Corpuscular Hemoglobin Concent 33.2 g/dl RDW Standard Deviation 42.8 fL RDW Coefficient of Variation 13.7 % Platelet Count 161 K/uL Mean Platelet Volume 11.4 fL Sodium Level 134 mmol/L Potassium Level 3.8 mmol/L Chloride Level 101 mmol/L Carbon Dioxide Level 27 mmol/L Anion Gap 6.0 mmol/L Blood Urea Nitrogen 16 mg/dl Creatinine 0.87 mg/dl Est Creatinine Clear Calc Drug Dose 71.5 ml/min Estimated GFR () 79.9 Estimated GFR (Non- 68.9 BUN/Creatinine Ratio 18.2 Random Glucose 241 mg/dl Calcium Level 8.6 mg/dl Assessment and Plan Patient is a 66 year old female with a PMH of asthma/COPD, tobacco use disorder , insulin dependent DM2, depression/anxiety, hypothyroidism, hx. of CVA - presents after a mechanical fall and subsequently found to have a left femoral intertrochanteric hip fracture. Mechanical Fall with subsequent L Femoral Intertrochanteric Hip Fracture 10/17 - recommended SNF or rehab - patient is refusing - high chance of readmission, but patient still wants to go home with home health - wants a walker, motorized scooter, bedside commode - case management aware - Aspirin 81mg BID for DVT prophylaxis x4 weeks - Please call [facility] at [phone] to schedule a follow up appointment 10-14 days from the date of your surgery date. 10/16 - doing well - will d/c home on 10/17; with home health; walker, bedside commode; wants a motorized scooter - may need Percocet PRN on discharge 10/15 - s/p intertrochanteric nail, POD #0 - patient is doing well - DVT ppx as per ortho - pain management as per ortho - monitor labs in AM - will monitor vitals Insulin Dependent DM2 - Ha1c in June 2017 - 7.7%, Ha1c today (10/15) is 8.3% - Added Lantus 15 units BID and pharmacy glycemic control consulted - continue sliding scale - hold metformin while inpatient Asthma/COPD - mild wheezing - continue home inhalers - incentive spirometer Hypothyroidism - continue home medications Depression/Anxiety - continue home medications DVT ppx - as per ortho FULL CODE
[2017-10-17] MEDS ORDERED: MISC-573 (15:55)
[2017-10-17] MEDS ORDERED: [UNRECOGNIZED DRUG - CODE] (15:55)
[2017-10-17] MEDS ORDERED: MISC-796 (15:55)
--- NOTE | 2017-10-17 16:05 | Discharge Instructions ---
Discharge Instructions Date of Service Oct 17, 2017. Admission Reason for Admission: Fracture Of Femoral Nexk, Left, Closed Discharge Discharge Diagnosis / Problem: Femoral Neck Fracture Discharge Goals Goal(s): Decrease discomfort, Improve function, Diagnostic testing, Therapeutic intervention Activity Recommendations Activity Limitations: resume your previous activity Weightbearing Status: Left toe touch . Instructions / Follow-Up Instructions / Follow-Up Please follow-up with Dr. Lang on October 25 at 11:05AM Please call [facility] at [phone] to schedule a follow up appointment 10-14 days from the date of your surgery date * You will take aspirin 81mg twice a day for four weeks to prevent blood clots from forming * You will receive home physical and occupational therapy * You cannot weight-bear on the left leg, only toe touch for transfers; always use a walker or wheelchair to get around * Use Percocet for pain sparingly, and never drive while taking this medication Current Hospital Diet Patient's current hospital diet: Diabetes Type 2 Diet Discharge Diet Recommended Diet: Diabetes Type 2 Diet Procedures Procedures Performed: Left Intramedullary Troch with 11 mm helical blade by 105 mm utilizing a Synthes 12 mm x 2 35 mm Pending Studies Studies pending at discharge: no Laboratory Results Hemoglobin A1c Test 10/15/17 06:35 Range/Units Estimated Average Glucose 192 mg/dl Hemoglobin A1c 8.3 H 4.5-5.6 % Medical Emergencies . Who to Call and When: Medical Emergencies: If at any time you feel your situation is an emergency, please call 911 immediately. . Non-Emergent Contact Non-Emergency issues call your: Primary Care Provider, Surgeon . . "Provider Documentation" section prepared by Renetta Segura. . Teaching Manager Recommendations Teaching Manager Recommendations: U DISCHARGE INSTRUCTIONS: HIP FRACTURE SELF CARE INSTRUCTIONS: A. You are to ambulate with a walker or crutches for approximately 6 weeks. B. You are TOE TOUCH WEIGHT BEARING on your operative lower extremity for at least 6 weeks. C. Wear low heeled shoes with non-slip soles D. Be sure that your floors are free of things that could trip you throw rugs, electrical cords, and small objects. Avoid wet and waxed floors, especially with crutches/walker/cane. E. Try to walk several times a day with rest periods between. F. You may shower 72 hours after surgery and get the incision area wet, but DO NOT soak or submerge incision area in water. (No baths, swimming pools, hot tubs ) G. Change the dressing daily for the first week, Once the incision is dry without drainage, you may leave to the open air. If the ana are catching on your clothing, continue to place a dressing over the wound until seen back in the office. Call with any questions about your wound. . H. Do NOT apply soap or any ointment/lotions directly over incision. I. You may use ice as needed to operative site. SPECIAL CARE INSTRUCTIONS: VERY IMPORTANT TO READ AND REVIEW A. You may be at risk for phlebitis or blood clots. a. Wear surgical stockings (BENTLEY hose) for 2 weeks after surgery to improve circulation and reduce swelling. b. Take ASPIRIN 81 mg twice daily for 4 weeks or as directed. This is your blood thinner. B. There are a few signs you need to watch for after you are home. Call [facility] at [phone] if you experience any of the following: a. If you have a temperature of 101 degrees or higher. b. Sudden increase in pain in your hip not relieved by rest or pain medication. c. Any fluid or drainage from the incision; redness of the incision. d. Shortness of breath or chest pain. C. Call your physician if: a. Temperature is greater than 101 degrees (F). b. Pain is not relieved by prescribed pain medications. c. Increase drainage or redness from incision. d. Unanswered questions or concerns. D. Pain Medication: a. You will be prescribed pain medication upon discharge that should last till your first post-operative appointment. b. If you experience nausea and/or skin rash, discontinue this medication and contact our office for an alternative medication. c. Caution- narcotic pain medication can cause constipation. FOLLOW UP VISIT: Please call [facility] at [phone] to schedule a follow up appointment 10-14 days from the date of your surgery date. [place] Drug Monitoring Program Search Results: patient reviewed within database, see additional documentation Drug Monitoring Findings: Was given Vicodin earlier in the month; will give a short course of Percocet
[2017-10-17 16:08] VITALS: BP 116/67; PULSE 86; TEMP 36.6; O2SAT 92
--- NOTE | 2017-10-17 16:08 | Discharge Summary ---
Discharge Summary Date of Service Oct 17, 2017. Discharge Summary Admission Date: Oct 14, 2017 at 18:24 Discharge Date: Oct 17, 2017 Discharge Disposition: Home with services Principal Diagnosis: Mechanical Fall with subsequent L Femoral Intertrochanteric Hip Fracture Insulin Dependent DM2 Asthma/COPD Hypothyroidism Depression/Anxiety Medication Reconciliation New Medications: Misc. Devices (Roller Walker) 1 Mis Mis UNIT, #1 Misc. Devices (Bedside Commode) 1 Mis Mis UNIT, #1 Misc. Devices (Wheelchair) 1 Mis Mis UNIT, #1 Oxycodone/Acetaminophen 5MG/325MG (Percocet 5MG/325MG) Tab 1 TABLET PO Q6H PRN for Pain for 3 Days, #10 TAB Aspirin (Aspirin EC Low Dose) 81 Mg Ectab 81 MG PO BID for 30 Days, #60 TABS Continued Medications: Albuterol Hfa (Ventolin Hfa) 200 Puffs/33585 Mcg Aers 2 PUFFS INH Q4H PRN for Shortness of Breath Atorvastatin (Lipitor) 80 Mg Tab 80 MG PO QAM, TAB Cetirizine (Zyrtec) 10 Mg Tab 10 MG PO DAILY Escitalopram Oxalate (Lexapro) 10 Mg Tab 1 TAB PO DAILY for 30 Days, #30 TAB 3 Refills Fluticasone Propionate (Nasal) (Flonase Allergy Relief) 50 Mcg/Act Spr 2 SPRAYS DAVID DAILY Insulin Glargine (Basaglar Kwikpen) 100 Unit/Ml Inj 31 UNITS SC HS Insulin Lispro (Human) (Humalog Kwikpen) 100 Unit/Ml Inj 1 DOSE SC DIRECTED MAY INJECT UP TO 75 UNITS DAILY PER SLIDING SCALE Latanoprost (Xalatan 0.005% Oph Melinda) 0.005 % Melinda 1 DROPS OP HS, #7.5 ML 3 Refills Levothyroxine Sodium (Synthroid) 100 Mcg Tab 100 MCG PO DAILY, TAB Metformin Ext Rel (Glucophage Ext Rel) 500 Mg Tab 1000 MG PO BID, TAB Montelukast Sodium (Singulair) 10 Mg Tab 10 MG PO, TAB Oxycodone Ir (Roxicodone Ir) 5 Mg Tab 1-2 TAB PO Q6 PRN for Pain, #12 TAB Tolterodine Tartrate (Detrol LA) 2 Mg Capcr 1 CAP PO BID for 30 Days, #60 CAP 2 Refills Admission Information HPI (per Admitting provider): Pt is 66 y/o F with PMH asthma, DM II, hypothyroidism, depression, tobacco use presented to ER with complaint of left knee and left hip pain after fall. Patient states was walking and she did not see stairs and tripped and fell. Denies hitting head or LOC. Complains of left knee pain and edema and ecchymosis and left hip pain with range of motion or attempted weightbearing. States some mild tingling sensation left leg. Denies any injury to upper extremities or right lower extremity. Patient reports unable to bear weight on left leg secondary to pain. Patient reports history of left knee scope on . History of asthma uses albuterol inhaler 2-3 times a week. Reports chronic postnasal drip, uses Flonase. Denies history CAD LA in the past. History echo 2016: EF: 60-64%. Patient reports history stress test in 2010 which she reports is normal. Denies history hip injury or surgery in the past. History of bilateral knee replacement past. Denies fever/chills, diaphoresis, N/V/D/C, DIAZ, dizziness, syncope, vision changes, neck pain, back pain, CP, SOB, orthopnea , palpitations, cough, sore throat, choking, otalgia, abdominal pain, rashes, urinary symptoms. Physical Exam (per Admitting): General Appearance: no apparent distress, + obese Head: normocephalic, atraumatic Eyes: normal inspection, sclerae normal ENT: hearing grossly normal, pharynx normal, + pertinent finding (membranes moist) Neck: supple, no JVD, trachea midline Respiratory/Chest: no respiratory distress, no accessory muscle use, + wheezing (Mild scattered expiratory wheezing) Cardiovascular: regular rate, rhythm, no murmur Abdomen/GI: normal bowel sounds, non tender, soft Extremities/Musculoskelatal: + pertinent finding (Left knee: + edema ecchymosis, mild tenderness to palpation, limited range of motion secondary to tenderness. Left hip no tenderness to palpation, positive tenderness with any active internal or external rotation or flexion. Distal pulses bilaterally intact, sensation to light touch intact bilaterally, brisk cap refill bilaterally) Neurologic/Psych: alert, normal mood/affect, oriented x 3 Skin: normal color, warm/dry Hospital Course Patient is a 66 year old female with a PMH of asthma/COPD, tobacco use disorder , insulin dependent DM2, depression/anxiety, hypothyroidism, hx. of CVA - presents after a mechanical fall and subsequently found to have a left femoral intertrochanteric hip fracture. Mechanical Fall with subsequent L Femoral Intertrochanteric Hip Fracture 10/17 - recommended SNF or rehab - patient is refusing - high chance of readmission, but patient still wants to go home with home health - wants a walker, motorized scooter, bedside commode - case management aware - Aspirin 81mg BID for DVT prophylaxis x4 weeks - Please call [facility] at [phone] to schedule a follow up appointment 10-14 days from the date of your surgery date. 10/16 - doing well - will d/c home on 10/17; with home health; walker, bedside commode; wants a motorized scooter - may need Percocet PRN on discharge 10/15 - s/p intertrochanteric nail, POD #0 - patient is doing well - DVT ppx as per ortho - pain management as per ortho - monitor labs in AM - will monitor vitals Insulin Dependent DM2 - Ha1c in June 2017 - 7.7%, Ha1c today (10/15) is 8.3% - Added Lantus 15 units BID and pharmacy glycemic control consulted - continue sliding scale - hold metformin while inpatient Asthma/COPD - mild wheezing - continue home inhalers - incentive spirometer Hypothyroidism - continue home medications Depression/Anxiety - continue home medications DVT ppx - as per ortho FULL CODE Total time spent on discharge = 45 minutes This includes examination of the patient, discharge planning, medication reconciliation, and communication with other providers. Discharge Instructions Please follow-up with Dr. Lang on October 25 at 11:05AM Please call [facility] at [phone] to schedule a follow up appointment 10-14 days from the date of your surgery date * You will take aspirin 81mg twice a day for four weeks to prevent blood clots from forming * You will receive home physical and occupational therapy * You cannot weight-bear on the left leg, only toe touch for transfers; always use a walker or wheelchair to get around * Use Percocet for pain sparingly, and never drive while taking this medication
[2017-10-17] MEDS ORDERED: INSULIN GLARGINE SOLOSTAR 100 UNITS/ML 3 ML PEN SC SCH (17:45)
== END 2017-10-17 16:52 | disposition home health service (06) | DRG 482 ==
LOC: EDBD 15:20 → C.EDA 15:21 → C.MSN 18:24 → ENRESERV 18:39
PROVIDERS: ADMIT Internal Medicine; ATTEND Family Medicine
PROC: 0QS706Z Reposition Left Upper Femur with Intramedullary Internal Fixation Device, Open Approach (ICD-10-PCS; principal; 2017-10-15 16:00)
DX: S72.032A Displaced midcervical fracture of left femur, initial encounter for closed fracture (principal); S80.02XA Contusion of left knee, initial encounter; J45.909 Unspecified asthma, uncomplicated; F32.9 Major depressive disorder, single episode, unspecified; E11.9 Type 2 diabetes mellitus without complications; J44.9 Chronic obstructive pulmonary disease, unspecified; E78.5 Hyperlipidemia, unspecified; E03.9 Hypothyroidism, unspecified; F41.9 Anxiety disorder, unspecified; F17.200 Nicotine dependence, unspecified, uncomplicated; Z96.653 Presence of artificial knee joint, bilateral; W01.0XXA Fall on same level from slipping, tripping and stumbling without subsequent striking against object, initial encounter; Z90.710 Acquired absence of both cervix and uterus; Z79.4 Long term (current) use of insulin; Z82.49 Family history of ischemic heart disease and other diseases of the circulatory system; Z83.3 Family history of diabetes mellitus